=== PATIENT | female | born 1955 | race African-American/Black ===

== ENCOUNTER → 2020-06-19 13:13 | Outpatient (CLI) | payer BC, SELFPAY ==
--- NOTE | ~2020-06-19 | US_ITS ---
EXAMINATION: US soft tissue UE LT DATE: 06/19/2020 13:38 INDICATION: Chronic painful palpable abnormality at the posterior left wrist. TECHNIQUE: Multiple grayscale and Doppler ultrasound images of the region of concern at the left wris t were obtained. COMPARISON: None FINDINGS: Lesion of concern corresponds to a 1.3 x 1.1 x 1.0 cm anechoic likely ganglion cyst with partial thin linear internal septation which appears to arise from an indeterminant joint space at the central as pect of the dorsum of the carpus. No internal flow or surrounding hyperemia on color Doppler. IMPRESSION: 1. 1.3 x 1.1 x 1.0 cm likely ganglion cyst at the dorsum of the carpus. Reviewed, dictated and finalized at location A.
== END ==
PROVIDERS: PCP Family Medicine; Visit Provider Physician Assistant
DX: M67.432 Ganglion, left wrist (principal)
CPT/HCPCS: 76882

== ENCOUNTER → 2021-01-19 13:41 | Outpatient (CLI) | payer BC, SELFPAY ==
--- NOTE | ~2021-01-19 | MM_ITS ---
EXAMINATION: MM screening aria BI w kamaljit HISTORY: Screening mammogram TECHNIQUE: Craniocaudal and mediolateral oblique 3-D tomosynthesis images were obtained and synthetic 2-D images were generated. CAD analysis was submitted and interpreted. COMPARISON: 03/17/2019 diagnostic left digital mammogram and limited left breast ultrasound 02/05/2019 bilateral digital screening mammogram 1. 531 limited right breast ultrasound 09/14/2017 bilateral diagnostic digital mammogram and complete bilateral breast ultrasound 08/09/2017 bilateral digital screening mammogram BREAST PARENCHYMAL COMPOSITION: There are scattered areas of fibroglandular density. FINDINGS: Left breast: There is an approximately 6 x 10 mm opacity in the posterior outer left breast on craniocaudal view. Interval new or enlarged approximately 5 x 10 mm circumscribed opacity at mid depth in the upper oute r quadrant of the left breast.. Right breast: No significant new or enlarging opacities or interval mass or architectural distortion or malignant calcification, skin thickening or retraction of right breast. IMPRESSION: 1. Asymmetric opacities, upper outer left breast 2. Diagnostic left mammogram and left breast ultrasound examination are recommended. BI-RADS Category 0: Incomplete: Needs additional imaging evaluation. Reviewed, dictated and finalized at location A. IMPRESSION: 1. Asymmetric opacities, upper outer left breast 2. Diagnostic left mammogram and left breast ultrasound examination are recomme nded. BI-RADS Category 0: Incomplete: Needs additional imaging evaluation.
== END ==
PROVIDERS: PCP Family Medicine; Visit Provider Nurse Practitioner
DX: Z12.31 Encounter for screening mammogram for malignant neoplasm of breast (principal); R92.8 Other abnormal and inconclusive findings on diagnostic imaging of breast
CPT/HCPCS: 77063; 77067

== ENCOUNTER 2021-01-30 14:25 | Outpatient (CLI) | payer BC, SELFPAY ==
--- NOTE | ~2021-01-30 | MMUS_ITS ---
EXAMINATION: MM diagnostic mammo unilat LT, US breast LT limited HISTORY: Follow-up left breast mass TECHNIQUE: Additional 3-D tomosynthesis images of the left breast were performed and synthetic 2-D im ages were generated. CAD analysis was submitted and interpreted. High resolution Limited left breast ultrasound was performed. COMPARISON: 01/19/2021 BREAST PARENCHYMAL COMPOSITION: Breast composed of scattered areas of fibroglandular density. FINDINGS: MAMMOGRAPHIC FINDINGS: There are multiple masses in the upper outer quadrant of the left breast, largest measuring approxima tely 1 cm. There are benign-appearing left breast calcifications. ULTRASOUND: Left breast ultrasound: There are multiple cysts of the left breast largest at 2:00, 5 cm from the ni pple measuring 11 mm. This corresponds to the dominant mass seen on mammogram. At 2:00, 4 cm from the nipple, there is a slightly irregular shaped hypoechoic mass measuring 4 mm maximum dimension with a ntiparallel configuration. No significant posterior features. No internal vascularity. IMPRESSION: 1. Slightly irregular shaped 4 mm hypoechoic left breast mass with antiparallel configuration. 2. Ultrasound-guided left breast biopsy recommended. BI-RADS category 4, suspicious findings. Reviewed, dictated and finalized at location A. IMPRESSION: 1. Slightly irregular shaped 4 mm hypoechoic left breast mass with antiparallel configuration. 2. Ultrasound-guided left breast biopsy recommended. BI-RADS category 4, suspicious findings.
== END 2021-01-30 14:26 ==
LOC: MICIMG 14:26
PROVIDERS: PCP Family Medicine; Visit Provider Nurse Practitioner
DX: N60.02 Solitary cyst of left breast (principal); N63.21 Unspecified lump in the left breast, upper outer quadrant
CPT/HCPCS: 76642; 77065

== ENCOUNTER 2021-02-16 10:36 | Outpatient (CLI) | payer BC, SELFPAY ==
--- NOTE | ~2021-02-16 | US_ITS ---
US breast cyst asp LT DATE: 02/16/2021 11:18 INDICATION: Slightly irregular hypoechoic 4 mm sonographic mass reported 2:00 4 cm from the nipple on 01/30/2021 Limited left breast ultrasound examination TECHNIQUE: The purpose of the procedure, technique and potential complications were discussed with th e patient. The patient indicated understanding and gave consent. Timeout procedure confirmed proper patient, procedure and left breast. The skin of the left breast was prepared with sterile Betadine solution. 1% lidocaine local anestheti c was administered to the skin; 1% lidocaine with epinephrine was administered to the deep subcutaneo us tissues. Using ultrasound guidance, an 18-gauge spinal needle was introduced through the reported 4 mm mass at 2:00 4 cm from the nipple. The lesion disappeared upon penetration by the needle and was no longer sonographically detectable, consistent with simple cyst. COMPARISON: 01/30/2021 Limited left breast ultrasound IMPRESSION: BI-RADS Category 2: Benign finding; benign cyst at 2:00 4 cm from nipple, resolved by son ographically guided aspiration Recommendation: Routine mammographic screening Reviewed, dictated and finalized at Location A. Reviewed, dictated and finalized at location A. IMPRESSION: BI-RADS Category 2: Benign finding; benign cyst at 2:00 4 cm from n ipple, resolved by sonographically guided aspiration Recommendation: Routine mammographic screening
== END 2021-02-16 10:37 | disposition home or self-care (01) ==
LOC: ANHIMG 10:37
PROVIDERS: PCP Family Medicine; Visit Provider Surgery
DX: R92.8 Other abnormal and inconclusive findings on diagnostic imaging of breast (principal)
CPT/HCPCS: 19000

== ENCOUNTER → 2021-05-14 11:02 | Outpatient (CLI) | payer BC, SELFPAY ==
--- NOTE | ~2021-05-14 | XR_ITS ---
EXAMINATION: XR chest 2V 05/14/2021 11:21 INDICATION: Cough, shortness of breath and chest pain PROCEDURE: 2 view chest COMPARISON: 03/21/2019 FINDINGS: The lungs are clear. The cardiomediastinal silhouette is within normal limits. There are no pleural effusions. There is no pneumothorax suspected. IMPRESSION: 1: NO ACUTE CARDIOPULMONARY DISEASE. Reviewed, dictated and finalized at location A.
== END ==
PROVIDERS: PCP Family Medicine; Visit Provider Physician Assistant
DX: R05 Cough (principal); R06.02 Shortness of breath; R07.89 Other chest pain
CPT/HCPCS: 71046

== ENCOUNTER 2021-05-14 14:56 | Emergency (ER) | payer BC, SELFPAY ==
--- NOTE | ~2021-05-14 | XR_ITS ---
XR chest 2V 05/14/2021 15:16 Indication: Midsternal chest pain and shortness of breath Procedure: 2 view chest Comparison: Comparison to multiple prior studies sequentially, with oldest reviewed study dated 05/10. Findings: Bibasilar airspace disease. Heart size normal. No edema, pleural effusion or pneumothorax. Impression: 1: Bibasilar infiltrates may represent atelectasis or developing pneumonia. Reviewed, dictated and finalized at location A. Impression: 1: Bibasilar infiltrates may represent atelectasis or developing pneumonia.
--- NOTE | ~2021-05-14 | CT_ITS ---
EXAMINATION: CTA chest PE protocol DATE: 05/14/2021 19:56 INDICATION: Chest pain, shortness of breath, dyspnea TECHNIQUE: Computed tomography angiography (CTA) of the chest was performed with 100 mL Omnipaque-350 intravenous contrast timed to evaluate the pulmonary arteries. Coronal maximum intensity projection 3D-reconstructions were created by the technologist. Automated exposure control and iterative reconst ruction technique were employed. Exam dose: 441.75 mGy-cm total exam DLP. COMPARISON: 05/14/2021 2 view chest 07/23/[address] pulmonary scan FINDINGS: There is diagnostic contrast enhancement of the pulmonary arteries and no evidence of pulmo nary embolism. Heart size is within normal range. No thoracic aortic aneurysm or dissection. No hilar or mediastinal mass lesion or lymphadenopathy. No pericardial or pleural effusion. There is mild infiltrate or atelectasis in the lower lobes, left greater than right. A small sclerotic lesion of the anterolateral left sixth rib is probably a bone island considering th e absence of any other sclerotic lesions. IMPRESSION: No evidence of pulmonary embolism Mild infiltrate or atelectasis in the lower lobes, left greater than right Reviewed, dictated and finalized at Location A. Reviewed, dictated and finalized at location A.
--- NOTE | 2021-05-14 14:57 | ECG_ITS ---
Measurements Intervals [place] Rate: 82 P: 39 [place]: 125 QRS: -8 QRSD: 91 T: 6 QT: 363 QTc: 425 Interpretive Statements SINUS RHYTHM VOLTAGE CRITERIA FOR LVH BORDERLINE T WAVE ABNORMALITY- INFERIOR LEADS BASELINE ARTIFACT- I, III, AVR, AVL, AVF BORDERLINE ECG Electronically Signed On 05-14-2021 15:57:30 CDT by Joby Spencer D.O.
--- NOTE | 2021-05-14 15:34 | PC.NURSE ---
1513 PT N//A WHEN CALLED FOR TRIAGE.
[2021-05-14 15:35] VITALS: BP 137/69; PULSE 81; RESP 22; TEMP 36.4; O2SAT 98
[2021-05-14 16:07] LABS: Basophils Percent Auto 0.4 % (0.2-1.2); Eosinophils Absolute Auto 0.1 K/mm3 (0-0.3); Eosinophils Percent Auto 1.1 % (0-4.4); Hemoglobin 12.8 g/dL (12.0-15.0); Immature Granulocyte Absolute 0.02 K/mm3 (0.00-0.031); Immature Granulocyte Percent A 0.3 % (0-0.5); Lymphocytes Absolute Auto 2.23 K/mm3 (0.9-3.2); Lymphocytes Percent Auto 31.2 % (18.3-44.2); Mean Corpuscular HGB Conc 32.8 g/dl (32-36); Mean Corpuscular Hemoglobin 32.1 pg (26-34); Mean Corpuscular Volume 97.7 fl (80-100); Mean Platelet Volume 9.7 fl (7.4-10.4); Monocytes Absolute Auto 0.5 K/mm3 (0.1-0.6); Monocytes Percent Auto 6.6 % (2.6-8.5); Neutrophils Absolute Auto 4.3 K/mm3 (1.3-6.7); Neutrophils Percent Auto 60.4 % (45.5-73.1); Platelet Count Result 250 k/mm3 (150-375); Red Blood Count 3.99 M/mm3 (4.2-5.4); Red Cell Distribution Width 12.7 % (11.5-14.5); White Blood Count 7.2 K/mm3 (4.5-10.0)
[2021-05-14 16:21] LABS: Anion Gap 8 mmol/L (8-16); Blood Urea Nitrogen 9 mg/dL (7-17); Calcium 9.3 mg/dL (8.4-10.2); Carbon Dioxide 27 mmol/L (22-30); Chloride 106 mmol/L (98-107); Estimated CRCL calculation 74 ml/min; Estimated Glomerular Filt Rate > 60; Glucose 101 mg/dL (65-110); Potassium 3.7 mmol/L (3.4-5.0); Sodium 141 mmol/L (137-145)
[2021-05-14 16:22] LABS: Prothrombin Time 13.4 Seconds (11.1-14.7)
[2021-05-14 16:23] LABS: Partial Thromboplastin Time 28.5 SECONDS (22.3-36.8)
[2021-05-14 16:33] LABS: Troponin I < 0.012 ng/mL (0.000-0.034)
--- NOTE | 2021-05-14 18:35 | ED.CHESTPAIN ---
HPI - Chest Pain General Chief Complaint: Chest Pain Stated Complaint: chest pain Time Seen by Provider: 05/14/21 18:30 Source: RN notes reviewed History of Present Illness HPI narrative: Patient presents emerged department from home for chest pain. Patient states pain has been present for the past 10 days pain is located midsternal chest into the right chest is described as sharp and stabbing and has been constant for the past 10 days. Patient states the pain is worse with deep inspiration talking and rotation of the torso she states has been associated with mild feeling of shortness of breath. She states she is currently on amoxicillin for sinus infection with rhinorrhea and sinus congestion she denies any fevers or chills abdominal pain nausea vomiting or any other symptoms patient states she has not had her Covid vaccinations Related Data Home Medications Medication Instructions Recorded Confirmed alprazolam 1 mg tablet 1 mg PO DAILY 09/04/20 02/12/21 eszopiclone 3 mg tablet 3 mg PO ONCE 09/04/20 02/12/21 Allergies Allergy/AdvReac Type Severity Reaction Status Date / Time azithromycin Allergy Mild nausea Verified 05/14/21 19:20 [From Zithromax Z-Justen] codeine Allergy Mild Unknown Verified 05/14/21 19:20 Review of Systems Review of Systems: Gen.: Denies fevers or chills Eyes: Denies eye pain or visual change ENT: Reports congestion Respiratory: Reports shortness of breath denies cough CV: Reports chest pain GI: Denies abdominal pain nausea, emesis or diarrhea Musculoskeletal: Denies back pain or muscle pain Neuro: Denies numbness, tingling, weakness or focal weakness Skin: Denies rash Except as documented, all other systems reviewed and negative [facility] Past Medical History Medical History Anxiety Breast cyst Depression Insomnia MDD (major depressive disorder), recurrent episode, moderate Mitral valve prolapse Stomach ulcer Vitamin D deficiency Surgical History Surgical History History of breast biopsy History of removal of ovarian cyst Family History Family History Sibling Hypertension Family history of mental disorder Family history of arthritis Family history of heart disease in male family member before age 55 Other Diabetes mellitus Family history of cardiovascular disease Family history of kidney disease Family history of malignant neoplasm Social History Social History Social History: Smoking packs per day: 1 Smoking cigarettes per day: 20.0 Years smoked: 20 Smoking pack-years: 20.00 Smoking status: Former smoker Tobacco type: cigarettes Second hand tobacco smoke exposure: No Smoking end date: 08/29/92 Alcohol intake: never Substance use: never Substance use type: does not use Gender identity (if verbalized by the patient): Female Sexual Orientation (if Verbalized by the Patient): Straight or Heterosexual Exam Narrative: APPEARANCE: No acute distress, nontoxic, resting in bed EYES: EOMI HEENT: Normocephalic, atraumatic, OMM RESPIRATORY: No respiratory distress Clear to auscultation bilaterally with no rhonchi wheezing or rales. CARDIOVASCULAR: Regular rate and rhythm without murmurs rubs or gallops. Chest: Turn palpation of the right anterior chest wall pain increased with deep inspiration and rotation of the torso ABDOMINAL: Soft, nontender, nondistended, no rebound or guarding MUSCULOSKELETAl: Moves all extremities. No clubbing, cyanosis or edema. NEURO: Awake and alert. Following commands, speech normal, no focal deficits SKIN:: Warm, dry. No rashes lesions or abrasions PSYCHIATRIC: Normal affect/mood, Course Course Emergency Course: Patient states chest pain is improved with medication Called and discussed
[2021-05-14 19:12] LABS: Troponin I < 0.012 ng/mL (0.000-0.034)
[2021-05-14 19:17] VITALS: BP 147/88; PULSE 75; RESP 17; O2SAT 100
[2021-05-14] MEDS: KETOROLAC 30 MG/ML VIAL (*BKC) IV PUSH (19:27)
[2021-05-14] MEDS: ONDANSETRON INJ 4 MG/2 ML VIAL IV PUSH (20:02)
[2021-05-14 21:16] VITALS: BP 126/81; PULSE 76; RESP 18; O2SAT 100
[2021-05-15 19:38] LABS: SARS-CoV-2 RNA PCR Negative
== END 2021-05-14 21:09 | disposition home or self-care (01) ==
PROVIDERS: Emergency Medicine; Emergency Provider Emergency Medicine; PCP Family Medicine
DX: R07.89 Other chest pain (principal); Z20.822 Contact with and (suspected) exposure to COVID-19; F41.9 Anxiety disorder, unspecified; F32.9 Major depressive disorder, single episode, unspecified; I34.1 Nonrheumatic mitral (valve) prolapse; E55.9 Vitamin D deficiency, unspecified; Z87.891 Personal history of nicotine dependence; R94.31 Abnormal electrocardiogram [ECG] [EKG]
CPT/HCPCS: 36415; 71046; 71275; 80048; 84484; 85025; 85610; 85730; 93005; 96374; 96375; 99284; C9803; J1885; J2405; Q9967; U0003; U0005

== ENCOUNTER 2022-03-17 11:42 | Emergency (ER) | payer BC, SELFPAY ==
[2022-03-17] VITALS (11 sets, daily range): BP systolic 123–135; BP diastolic 72–96; PULSE 69–96; RESP 12–21; TEMP 36.8; O2SAT 90–100
--- NOTE | ~2022-03-17 | XR_ITS ---
EXAMINATION: XR chest 2V DATE: 03/17/2022 12:38 INDICATION: 2 weeks of worsening centralized chest pain TECHNIQUE: PA and lateral views of the chest were obtained. COMPARISON: Chest radiograph and CT dated 05/14/21 FINDINGS: The lungs are clear with no focal airspace opacities, pulmonary edema, pleural effusion or pneumothor ax. The cardiomediastinal silhouette is normal. Visualized bones and soft tissues are unremarkable. IMPRESSION: 1. No acute cardiopulmonary disease. Reviewed, dictated and finalized at location A.
--- NOTE | ~2022-03-17 | CT_ITS ---
EXAMINATION: CTA chest abdomen pelvis DATE: 03/17/2022 13:08 INDICATION: Shortness of breath, chest pain and epigastric pain radiating into the back. TECHNIQUE: Computed tomography (CT) pulmonary angiogram of the chest was performed with 100 mL Omnipa que-350 intravenous contrast. Additional 3D reconstructions utilizing coronal maximum intensity proje ction (MIP) were performed. CT of the abdomen and pelvis was performed with intravenous contrast util izing the same contrast bolus following a short delay. Automated exposure control and iterative recon struction technique were employed. The dose-length product was 1005.24 mGy-cm. COMPARISON: Chest CT dated 05/14/2021 and 07/23/[address] abdomen and pelvis dated 10/28/2015 FINDINGS: Chest: Excellent contrast opacification of the pulmonary arteries. There is mild streak artifact from dense contrast in the superior vena cava and right atrium. No significant motion artifact yielding diagnost ic quality study which demonstrates no pulmonary embolism. Very small bilateral posterior layering pl eural effusions. Mild dependent atelectasis in the bilateral lower lobes. Heart size is normal. No pe ricardial effusion. Thoracic aorta is normal in caliber with no dissection. No pathologically enlarge d abdominal or pelvic lymphadenopathy. Chronic small sclerotic bone island at the anterolateral left sixth rib. Abdomen/pelvis: There are couple subcentimeter low-attenuation hepatic cysts versus hemangiomas which are unchanged s kalani 10/28/15. Small phrygian cap versus focal adenomyomatosis at the tip of the gallbladder fundus. Th e common bile duct is dilated to 9 mm which is without interval change since the 07/23/2018 without e vident obstructing lesion. No intrahepatic biliary ductal dilation. Spleen, pancreas, bilateral adren al glands and kidneys are normal. Bladder, anteverted uterus and bilateral adnexa are normal. There a re few diverticula along the sigmoid colon without adjacent inflammatory change to suggest diverticul ar colitis. No free intraperitoneal gas or fluid. No pathologically enlarged abdominal or pelvic lymp hadenopathy. Mild thoracolumbar levocurvature. IMPRESSION: 1. No pulmonary embolism. 2. Very small bilateral pleural effusions. 3. Chronic mild dilation the common bile duct up to 9 mm without evident obstructing lesion. Correlat e with liver function tests. Reviewed, dictated and finalized at location A. IMPRESSION: 1. No pulmonary embolism. 2. Very small bilateral pleural effusions. 3. Chronic mild dilation the common bile duct up to 9 mm without evident obstru cting lesion. Correlate with liver function tests.
--- NOTE | 2022-03-17 11:43 | ECG_ITS ---
Measurements Intervals [place] Rate: 92 P: 52 [place]: 127 QRS: 6 QRSD: 89 T: 39 QT: 350 QTc: 433 Interpretive Statements SINUS RHYTHM BORDERLINE R WAVE PROGRESSION, ANTERIOR LEADS BORDERLINE ST-T WAVE ABNORMALITY- ANTEROLAT/INF LEADS BORDERLINE ECG Electronically Signed On 03-17-2022 22:29:05 CDT by Joby Spencer D.O.
[2022-03-17] MEDS: ASPIRIN 81 MG CHEWABLE TABLET 324 MG PO (12:07)
[2022-03-17 12:13] LABS: Basophils Percent Auto 0.3 % (0.2-1.2); Eosinophils Absolute Auto 0.1 K/mm3 (0-0.3); Eosinophils Percent Auto 1.9 % (0-4.4); Hematocrit 41.1 % (37.0-47.0); Hemoglobin 13.4 g/dL (12.0-15.0); Immature Granulocyte Absolute 0.02 K/mm3 (0.00-0.031); Immature Granulocyte Percent A 0.3 % (0-0.5); Lymphocytes Absolute Auto 2.24 K/mm3 (0.9-3.2); Lymphocytes Percent Auto 35.2 % (18.3-44.2); Mean Corpuscular HGB Conc 32.6 g/dl (32-36); Mean Corpuscular Hemoglobin 31.4 pg (26-34); Mean Corpuscular Volume 96.3 fl (80-100); Mean Platelet Volume 9.9 fl (7.4-10.4); Monocytes Absolute Auto 0.5 K/mm3 (0.1-0.6); Monocytes Percent Auto 8.3 % (2.6-8.5); Neutrophils Absolute Auto 3.4 K/mm3 (1.3-6.7); Platelet Count Result 273 k/mm3 (150-375); Red Blood Count 4.27 M/mm3 (4.2-5.4); Red Cell Distribution Width 12.9 % (11.5-14.5); White Blood Count 6.4 K/mm3 (4.5-10.0)
[2022-03-17 12:22] LABS: Alanine Aminotransferase 18 U/L (6-35); Albumin Level 4.8 g/dL (3.5-5.1); Alkaline Phosphatase 104 U/L (38-126); Anion Gap 8 mmol/L (8-16); Aspartate Amino Transferase 23 U/L (14-36); Bilirubin,Total 0.7 mg/dL (0.2-1.3); Blood Urea Nitrogen 12 mg/dL (7-17); Calcium 9.3 mg/dL (8.4-10.2); Carbon Dioxide 26 mmol/L (22-30); Chloride 107 mmol/L (98-107); Estimated CRCL calculation 82 ml/min; Estimated Glomerular Filt Rate > 60; Glucose 110 mg/dL (65-110); Lipase 115 U/L (23-300); Sodium 141 mmol/L (137-145)
--- NOTE | 2022-03-17 12:25 | ED.GENADULT ---
HPI - General Adult General Chief complaint: Chest Pain Stated complaint: chest pain x 1.5 weeks, nausea, BERRY Time Seen by Provider: 03/17/22 11:58 History of Present Illness HPI narrative: 66-year-old female presenting to the emergency department for evaluation of 1.5 weeks of intermittent substernal chest pain. Patient denies any prior history of HI or CVA. Patient states over the course of the last 1-1/2 weeks she has had a epigastric/substernal chest pain that she states does radiate to her back. Patient denies a sharp pain but states it is a pressure. Patient states the pain initially started when she was going to bed and lying down and that the symptoms have persisted. Patient states that she does not drink alcohol. Patient states that she typically takes Tylenol for pain control but has been taking Aleve daily for the past week and a half. Related Data Home Medications Medication Instructions Recorded Confirmed alprazolam 1 mg tablet (Xanax) 1 mg PO DAILY 09/04/20 10/27/21 eszopiclone 3 mg tablet 3 mg PO ONCE 09/04/20 10/27/21 Allergies Allergy/AdvReac Type Severity Reaction Status Date / Time azithromycin Allergy Mild nausea Verified 03/17/22 12:02 [From Zithromax Z-Justen] codeine Allergy Mild Unknown Verified 03/17/22 12:02 amoxicillin [From Augmentin] AdvReac nausea, Verified 03/17/22 12:02 headache clavulanic acid AdvReac nausea, Verified 03/17/22 12:02 [From Augmentin] headache Review of Systems Review of Systems: CONSTITUTIONAL: Denies fever, chills, or sweats. EYES: Denies visual changes, redness, or discharge. ENT: Denies rhinorrhea, congestion, sore throat, or otalgia. CARDIOVASCULAR: See HPI RESPIRATORY: Denies cough or dyspnea. GASTROINTESTINAL: Denies abdominal pain, nausea, vomiting, or diarrhea. GENITOURINARY: Denies dysuria or hematuria. SKIN: Denies rash or itching. MUSCULOSKELETAL: Denies back pain, joint pain, or myalgia. NEUROLOGIC: Denies headache, numbness, or weakness. [facility] Past Medical History Medical History Anxiety Breast cyst Depression Insomnia MDD (major depressive disorder), recurrent episode, moderate Mitral valve prolapse Stomach ulcer Vitamin D deficiency Surgical History Surgical History History of breast biopsy History of removal of ovarian cyst Family History Family History Sibling Hypertension Family history of mental disorder Family history of arthritis Family history of heart disease in male family member before age 55 Other Diabetes mellitus Family history of cardiovascular disease Family history of kidney disease Family history of malignant neoplasm Social History Social History (Updated 10/27/21 @ 13:06 by Meghan Parker) Social History: Smoking packs per day: 1 Smoking cigarettes per day: 20.0 Years smoked: 20 Smoking pack-years: 20.00 Smoking status: Former smoker Tobacco type: cigarettes Second hand tobacco smoke exposure: No Smoking end date: 08/29/92 Alcohol intake: never Substance use: never Substance use type: does not use Gender identity (if verbalized by the patient): Female Sexual Orientation (if Verbalized by the Patient): Straight or Heterosexual Exam Narrative: APPEARANCE: Well appearing, no pain, no distress, well-nourished. HEAD: normocephalic, atraumatic. EYES: PERRLA/EOMI, conjunctivae clear. NOSE: Normal no drainage THROAT: Pharynx clear, no exudate. NECK: Supple. No adenopathy, no masses. RESPIRATORY: Airway patent, respirations nonlabored. Clear to auscultation bilaterally, no rales, rhonchi, wheezing. CARDIOVASCULAR: Regular rate and rhythm without murmurs rubs or gallops. ABDOMINAL: Soft, nondistended, normal bowel sounds, mild epigastric tenderness to palpation MUSCULOSKELETAL: Moves all extremities. Stre
[2022-03-17 12:29] LABS: INR 1.1; Partial Thromboplastin Time 27.1 SECONDS (22.3-36.8); Prothrombin Time 13.6 Seconds (11.1-14.7)
[2022-03-17 12:35] LABS: Troponin I < 0.012 ng/mL (0.000-0.034)
[2022-03-17] MEDS: PANTOPRAZOLE SODIUM IV 40 MG VIAL IV PUSH (12:36)
[2022-03-17] MEDS: BELLADONNA ALK/PHENOB ELIX 10 ML, MAG HYDROX/ALUMINUM HYD/SIMETH 30 ML, LIDOCAINE HCL 2... PO (12:36)
[2022-03-17 12:40] LABS: D Dimer 1.25 ug/mL (<0.48)
[2022-03-17 15:06] LABS: Troponin I < 0.012 ng/mL (0.000-0.034)
== END 2022-03-17 15:57 | disposition home or self-care (01) ==
PROVIDERS: Emergency Medicine; Emergency Provider Emergency Medicine; PCP Family Medicine
DX: R07.9 Chest pain, unspecified (principal); F41.9 Anxiety disorder, unspecified; F32.9 Major depressive disorder, single episode, unspecified
CPT/HCPCS: 36415; 71046; 71275; 74174; 80053; 83690; 84484; 85025; 85380; 85610; 85730; 93005; 96365; 96375; 99284; A9270; C9113; J0131; Q9967

== ENCOUNTER 2022-05-18 12:49 | Outpatient (CLI) | payer MEDICARE, SELFPAY | END 2022-05-18 12:50 | disposition home or self-care (01) | LOC: ANHAUDIO 12:50 | PROVIDERS: PCP Family Medicine; Visit Provider Otolaryngology | DX: H91.93 Unspecified hearing loss, bilateral (principal); H93.13 Tinnitus, bilateral | CPT/HCPCS: 92557; 92567 ==

== ENCOUNTER → 2023-04-29 14:23 | Outpatient (CLI) | payer MEDICARE, SELFPAY ==
--- NOTE | ~2023-04-29 | MMUS_ITS ---
EXAMINATION: MM diagnostic aria BI w kamaljit, US breast BI limited HISTORY: Bilateral breast pain TECHNIQUE: Craniocaudal, mediolateral, and mediolateral oblique 3-D tomosynthesis images of the breas ts were performed and synthetic 2-D images were generated. CAD analysis was submitted and interpreted . High resolution limited bilateral breast ultrasound was performed. COMPARISON: 01/30/2021, 01/19/2021 BREAST PARENCHYMAL COMPOSITION: There are scattered areas of fibroglandular density. FINDINGS: MAMMOGRAPHIC FINDINGS: No suspicious mass, calcification, or architectural distortion are identified in either breast to sug gest malignancy. There has been no suspicious interval change. No mammographic correlate is identifie d for the reported pain in either breast. ULTRASOUND: No suspicious cystic or solid mass is identified to correspond with the patient's pain in either mai st. A 4 mm cyst is incidentally noted at the 6:00 location, 4 cm from the nipple in the left breast. IMPRESSION: 1. No suspicious mammographic or sonographic correlate is identified for the reported palpable abnorm ality of concern. Further evaluation at this time should be based on clinical assessment. Continued f ollow-up physical examination is recommended. 2. Recommend routine screening mammography in one year. BI-RADS Category 2: Benign finding(s). Reviewed, dictated and finalized at location A. IMPRESSION: 1. No suspicious mammographic or sonographic correlate is identified for the re ported palpable abnormality of concern. Further evaluation at this time should be based on clinical assessment. Continued follow-up physical examination is re commended. 2. Recommend routine screening mammography in one year. BI-RADS Category 2: Benign finding(s).
== END ==
PROVIDERS: PCP Family Medicine; Visit Provider Obstetrics & Gynecology Gynecology
DX: N64.4 Mastodynia (principal)
CPT/HCPCS: 76642; 77062; 77066; G0279

== ENCOUNTER 2024-06-19 09:08 | Outpatient (CLI) | payer MEDICARE, SELFPAY ==
--- NOTE | ~2024-06-19 | US_ITS ---
EXAMINATION: US aorta DATE: 06/19/2024 15:01 CDT INDICATION: Screening for abdominal aortic aneurysm. History of smoking and high cholesterol. TECHNIQUE: Grayscale, color Doppler, and pulsed Doppler images of the aorta and common iliac arteries were obtained. COMPARISON: None. FINDINGS: The proximal aorta measures 2.4 cm greatest sagittal dimension. The mid aorta measures 1.9 cm greates t sagittal dimension. The distal aorta measures 1.7 cm greatest sagittal dimension. The right common internal iliac artery measures 11 mm. The left common iliac artery measures 13 mm. IMPRESSION: 1. Normal caliber aorta without evidence for aneurysm. Reviewed, dictated and finalized at location B.
--- NOTE | ~2024-06-19 | XR_ITS ---
XR chest 2V Ordering provider: Mignon Marie, History: 69 years Female with . Cough . Comparison: March 17, 2022. FINDINGS: MEDIASTINUM: The cardiac silhouette is not enlarged. LUNGS: No infiltrates, effusions or pneumothorax. OTHER: No free air under the diaphragm. IMPRESSION: No acute cardiopulmonary pathology. Reviewed, dictated and finalized at location A.
--- NOTE | ~2024-06-19 | XR_ITS ---
3 VIEWS LUMBAR SPINE Ordering provider: Mignon Marie, History: . Lumbar radiculopathy . Comparison: April 09, 2017 FINDINGS: VERTEBRAL BODIES: No visible fracture or subluxation. DISK SPACES: Normal. SOFT TISSUES: Normal. IMPRESSION: No acute osseous abnormality lumbar spine. Reviewed, dictated and finalized at location A.
== END 2024-06-19 09:09 | disposition home or self-care (01) ==
LOC: MICIMG 09:10
PROVIDERS: PCP Internal Medicine; Visit Provider Internal Medicine
DX: M54.16 Radiculopathy, lumbar region (principal); R10.30 Lower abdominal pain, unspecified; R05.9 Cough, unspecified; Z78.0 Asymptomatic menopausal state; Z12.31 Encounter for screening mammogram for malignant neoplasm of breast
CPT/HCPCS: 71046; 72100; 76775

== ENCOUNTER 2024-07-24 13:21 | Outpatient (CLI) | payer MEDICARE, SELFPAY ==
--- NOTE | ~2024-07-24 | MM_ITS ---
EXAMINATION: MM screening [facility] BI w kamaljit HISTORY: Screening TECHNIQUE: Craniocaudal and mediolateral oblique 3-D tomosynthesis images were obtained and synthetic 2-D images were generated. CAD analysis was submitted and interpreted. COMPARISON: Comparison to multiple prior studies sequentially, with oldest reviewed study dated 02/05. BREAST PARENCHYMAL COMPOSITION: Not dense: There are scattered areas of fibroglandular density. FINDINGS: There is no evidence of suspicious mass, calcification, or architectural distortion to sugg est malignancy in either breast. There has been no suspicious interval change. IMPRESSION: 1. No mammographic evidence of malignancy. 2. Recommend routine screening mammography in one year. BI-RADS Category 1: Negative Reviewed, dictated and finalized at location B. [facility] [employer]
== END 2024-07-24 13:22 | disposition home or self-care (01) ==
PROVIDERS: PCP Internal Medicine; Visit Provider Nurse Practitioner
DX: Z12.31 Encounter for screening mammogram for malignant neoplasm of breast (principal)
CPT/HCPCS: 77063; 77067

== ENCOUNTER 2024-12-10 12:19 | Outpatient (CLI) | payer MEDICARE, SELFPAY ==
--- NOTE | ~2024-12-10 | DEXA_ITS ---
Bone Density Report Name: GIUSEPPE CAMPOS Age: 69 Sex: Female Ethnicity: White Date of : 1955 Indication: postmenopausal; screening for osteoporosis; prior fracture; Referring Provider: EDITA, NATTY Study: Bone densitometry was performed. Exam Date: December 10, 2024 Accession number: [id number] Bone Density: Region BMD T-score Z-score Classification AP Spine(L1-L4) 1.362 2.9 4.8 Normal Femoral Neck (Left) 0.886 0.3 2.0 Normal Total Hip (Left) 1.030 0.7 2.1 Normal Femoral Neck (Right) 0.916 0.6 2.3 Normal Total Hip (Right) 1.114 1.4 2.8 Normal Total Hip Mean 1.072 1.1 2.5 Normal World Health Organization criteria for BMD impression classify patients as: Normal (T-score at or above -1.0), Osteopenia (T-score between -1.0 and -2.5), or Osteoporosis (T-score at or below -2.5). 10-year Fracture Risk: FRAX not reported because: All T-scores for Spine Total, Hip Total, Femoral Neck at or above -1.0 Clinical Information Provided by Patient: Has had a low trauma fracture Has used the following medications: Vitamin D Patient maximum height was 67.0 Menopause Age: 47 No regular weight bearing exercise Does not regularly consume dairy products Drinks caffeinated beverages Onset of menses at age 15 Number of children 2 Impression: The patient has normal bone mass. The patient has risk factors, including: previous fracture. Discussion: BONE DENSITY IS ABOVE THE MINIMUM DESIRABLE LEVEL AT ALL SKELETAL SITES TESTED. This patient?s bone mineral density is above the minimum desirable level (T-score -1.0 or better) at all sites measured. The patient should follow a healthful lifestyle (good nutrition with adequate calcium and vitamin D, and appropriate weight-bearing exercise). Follow-Up: Consider repeating this study in 5 years or sooner if there is some new clinical indication. Reported by: ELROY on 12/10/2024 12:52:00 PM. Reviewed, dictated and finalized at location [facility]
--- OUTSIDE RECORDS SUMMARY | 2024-12-10 13:33 | XMS_ITS ---
Author Organization [facility] Address [address] [place] [address] Care Team Providers Care Recenterer Name Role Phone Mignon Marie MD Primary Care Provider Susie Pederson Unavailable [phone] Francois Franks Unavailable Unavailable Allergies No Known Allergies Results Component Value Reference Range Notes -Tryptase ([id number]) Reviewed date:08/16/2024 11:27:15 AM Interpretation:Normal Performing Lab:[facility] [address] [id number], Phone - [phone], Director - Page Notes/Report: Tryptase 6.0 2.2-13.2 ug/L -Respiratory Allergens w/Tot al IgE Area 8 Reviewed date:08/14/2024 09:25:49 PM Interpretation:Normal Performing Lab:[facility] [address] [id number], Phone - [phone], Director - Page Notes/Report: Class Description Levels of Specific IgE Class Description of Class ----- < 0.10 0 Negative 0.10 - 0.31 0/I Equivocal/Low 0.32 - 0.55 I Low 0.56 - 1.40 II Moderate 1.41 - 3.90 III High 3.91 - 19.00 IV Very High 19.01 - 100.00 V Very High >100.00 Very High Immunoglobulin E, Total 173 6-495 IU/mL R041-FrL D pteronyssinus <0.10 Class 0 kU/L A618-QlY D farinae <0.10 Class 0 kU/L S129-JaA Cat Dander <0.10 Class 0 kU/L R144-QsD Dog Dander <0.10 Class 0 kU/L G286-XuW Mouse Urine <0.10 Class 0 kU/L I276-NuA Bermuda Grass <0.10 Class 0 kU/L F996-FxB Marvin Grass <0.10 Class 0 kU/L Z411-FeV Cockroach, Taiwanese <0.10 Class 0 kU/L R593-EvK Penicillium chrysogen <0.10 Class 0 kU /L Z358-JqC Cladosporium herbarum <0.10 Class 0 kU /L V853-MxN Aspergillus fumigatus <0.10 Class 0 kU /L E854-CpF Alternaria alternata <0.10 Class 0 kU/ L R675-RcI Maple/Lenorah <0.10 Class 0 kU/L P663-ViM Houghton, Mountain <0.10 Class 0 kU/L I426-KsE Vega, White <0.10 Class 0 kU/L W560-RkK Elm, Eritrean <0.10 Class 0 kU/L R761-YdJ [place] <0.10 Class 0 kU/L A909-LjG Maple Chalmers [place] <0.10 Class 0 kU/L O659-JnY [place] <0.10 Class 0 kU/L K925-OhC Mi, White <0.10 Class 0 kU/L R362-EdS Pecan, Gibson <0.10 Class 0 kU/L W851-QuC White Dickerson <0.10 Class 0 kU/L T650-OeE Ragweed, Short <0.10 Class 0 kU/L L524-EuN Thistle, Filipino <0.10 Class 0 kU/L B384-ObY Pigweed, Common <0.10 Class 0 kU/L K243-AcN Rough Marshelder <0.10 Class 0 kU/L REASON FOR VISIT Chronic upper airway symptoms concerning for uncontrolled atopic disease, congestion, sneezing and drainage occurring for many years. Previously seen at a different allergy office with positive testing to cat and DM., Chronic lower airways symptoms concerning for possible asthma, occasional cough when she is talking or laughing. Does admit to post-nasal drip., Sneezing with various fragrances. Medications Medication SIG (Take, Route, Frequency, Duration) Notes Start Date End Date Status Cetirizine HCl 10 MG 1 tablet Orally Once a day Active Nasal Washes N/A as directed intranasally 08/07/20 Active Ipratropium [place] 0.06 % 2 sprays in e ach nostril Nasally Twice a day for 30 days 08/07/2024 Active Benadryl Allergy 25 MG 1 tablet at bedti me as needed Orally Once a day Active Fluticasone Propionate 50 MCG/ACT 1 spray in each nostril Nasally Twice a day Active Xanax 1 MG 1 tablet Orally Twic e a day Active Lunesta 3 MG 1 tablet immediately before bedtime Orally Once a day Active Albuterol Sulfate HFA 108 (90 Base) MCG/ACT Inhalation Active Social History Tobacco Use: Social History Observation Description Date Details (start date - stop date) Former Smoker NA - NA Tobacco Control (Standard) Question Answer Notes Tobacco use: Former smoker Problems Problem Type SNOMED Code ICD Code Onset Dates Problem Status W/U Status Risk Notes Problem Allergic rhinitis caused by pollen (disorder) (84101955) Allergic rhinitis due to pollen (J30.1) Active confirmed Problem Allergic rhinitis (98988166) Other allergic rhinitis (J30.89) Active confirmed Problem Chronic allergic conjunctivitis (17458988) Other chronic allergic conjunctivitis (H10.45) Active confirmed Problem Anxiety disorder (449935440) Anxiety disorder, unspecified (F41.9) Active confirmed Problem Allergy to penicillin (02556871) Allergy status to penicillin (Z88.0) Active confirmed Problem Hypertrophy of nasal turbinates (31952032) Hypertrophy of nasal turbinates (J34.3) Active confirmed Problem Sneezing (72984257) Sneezing (R06.7) Active confirmed Problem Cough (finding) (56386073) Cough, unspecified (R05.9) Active confirmed Problem Elevated blood pressure reading without diagnosis of hypertension (117245229) Elevated blood-pressure reading, without diagnosis of hypertension (R03.0) Active confirmed Vital Signs Blood pressure systolic 134 mm Hg 12/10/20 24 Blood pressure diastolic 84 mm Hg 024 Height 67 in 08/07/2024 Weight 219.6 lbs 08/07/2024 BMI 34.39 kg/m2 08/07/2024 Oximetry 98 % 08/07/2024 Encounters Encounter Location Date Provider Diagnosis [facility] [address] [facility] [address] [place] [address] 08/07/2024 Susie Chapman Allergic rhinitis du e to pollen J30.1 ; Other allergic rhinitis J30.89 ; Other chronic allergic conjunctivitis H10.45 ; Hypertrophy of nasal turbinates J34.3 ; Sneezing R06.7 ; Cough, unspecified R05.9 ; Allergy status to penicillin Z88.0 and Elevated blood-pressure reading, without diagnosis of hypertension R03.0 Assessments Encounter Date Diagnosis (ICD Code) Assessment Notes Treatment Notes Treatment Clinical Notes Section Notes 08/07/2024 Allergic rhinitis due to pollen (ICD-10 - J30.1) Given the history and symptoms, skin testing was performed to common aeroallergens to determine atopic status. Jessa suffers from mild atopic disease based upon our skin testing and clinical history. Accordingly, we have introduced a new, aggressive medication regimen, discussed nasal washes and allergy-specific avoidance measures. We also discussed adjunctive therapies including subcutaneous, specific allergen immunotherapy as relates to the treatment and prevention of atopic disease. - Jessa deferred intradermal testing today, she is agreeable to ImmunoCaps. Order sent to [facility]. - Discuss SCIT in further detail next visit. - Follow-up in 4-6 weeks for laboratory review and further evaluation and management 08/07/2024 Other allergic rhinitis (ICD-10 - J30.89) Follow allergen avoidance, meds and consider SCIT as an adjunctive treatment to current regimen 08/07/2024 Other chronic allergic conjunctivitis (ICD-10 - H10.45) Given ocular signs and symptoms I encouraged allergy avoidance measures and meds as above. If symptoms persist, consider adding additional medications including intraocular antihistamine/mast cell stabilizer, PRN and consider SCIT as an adjunctive measure 08/07/2024 Hypertrophy of nasal turbinates (ICD-10 - J34.3) See plan above 08/07/2024 Sneezing (ICD-10 - R06.7) Jessa reports persistent sneezing with various triggers including strong fragrances. She also recently noted sneezing after eating peanut butter, however denied associated systemic symptoms. She regularly eats peanut butter without issue. - Will order baseline tryptase level for rule out of MCAS, however discussed that symptoms described are likely due to non-allergic rhinitis. Will trial ipratropium bromide as above 08/07/2024 Cough, unspecified (ICD-10 - R05.9) Jessa reports occasional cough that she feels is due to drainage. She denies shortness of breath or wheezing. She denies history of hospitalizations due to lower airway symptoms. Jessa was recently prescribed an albuterol inhaler by her PCP, however has not used it. She also reports compelting a breathing test, however no records to review. She is a prior smoker, quit 30-years ago. Reports being UTD on lung cancer screenings. - Records requested from PCP to review spirometry. - Will trial ipratropium bromide as above for concerns of PND. If cough persists, consider trial of ICS or ICS/LABA. - Continue PABLO as-needed. - Follow-up in 4 weeks for further evaluation and management 08/07/2024 Allergy status to penicillin (ICD-10 - Z88.0) Jessa recalls being told at some point to avoid penicillin, additional details are unclear. Continue avoidance at this time, discuss options for testing next visit 08/07/2024 Elevated blood-pressure reading, without diagnosis of hypertension (ICD-10 - R03.0) BP elevated today without symptoms of urgency or emergency. Continue serial checks and follow-up with PCP 08/07/2024 Other Plan Of Treatment Medication Medication Name Sig Start Date Stop Date Notes Cetirizine HCl 10 MG 1 tablet Orally Once a day Nasal Washes N/A as directed intranasally 08/07/2024 Ipratropium [place] 0.06 % 2 sprays in e ach nostril Nasally Twice a day for 30 days 08/07/2024 Fluticasone Propionate 50 MCG/ACT 1 spray in each nostril Nasally Twice a day Albuterol Sulfate HFA 108 (9 0 Base) MCG/ACT Inhalation Treatment Notes Assessment Notes Allergic rhinitis due to pollen Given the history and symptoms, skin testing was performed to common aeroallergens to determine atopic status. Jessa suffers from mild atopic disease based upon our skin testing and clinical history. Accordingly, we have introduced a new, aggressive medication regimen, discussed nasal washes and allergy-specific avoidance measures. We also discussed adjunctive therapies including subcutaneous, specific allergen immunotherapy as relates to the treatment and prevention of atopic disease. - Jessa deferred intradermal testing today, she is agreeable to ImmunoCaps. Order sent to [facility]. - Discuss SCIT in further detail next visit. - Follow-up in 4-6 weeks for laboratory review and further evaluation and management Other allergic rhinitis Follow allergen avoidance, meds and consider SCIT as an adjunctive treatment to current regimen Other chronic allergic conjunctivitis Gi oh ocular signs and symptoms I encouraged allergy avoidance measures and meds as above. If symptoms persist, consider adding additional medications including intraocular antihistamine/mast cell stabilizer, PRN and consider SCIT as an adjunctive measure Hypertrophy of nasal turbinates See plan above Sneezing Jessa reports persistent sneezing with various triggers including strong fragrances. She also recently noted sneezing after eating peanut butter, however denied associated systemic symptoms. She regularly eats peanut butter without issue. - Will order baseline tryptase level for rule out of MCAS, however discussed that symptoms described are likely due to non-allergic rhinitis. Will trial ipratropium bromide as above Cough, unspecified Jessa reports occasional cough that she feels is due to drainage. She denies shortness of breath or wheezing. She denies history of hospitalizations due to lower airway symptoms. Jessa was recently prescribed an albuterol inhaler by her PCP, however has not used it. She also reports compelting a breathing test, however no records to review. She is a prior smoker, quit 30-years ago. Reports being UTD on lung cancer screenings. - Records requested from PCP to review spirometry. - Will trial ipratropium bromide as above for concerns of PND. If cough persists, consider trial of ICS or ICS/LABA. - Continue PABLO as-needed. - Follow-up in 4 weeks for further evaluation and management Allergy status to penicillin Jessa rec alls being told at some point to avoid penicillin, additional details are unclear. Continue avoidance at this time, discuss options for testing next visit Elevated blood-pressure read ing, without diagnosis of hypertension BP elevated today without symptoms of urgency or emergency. Continue serial checks and follow-up with PCP Next Appt Details Follow Up: 4 Weeks, Reason: Evaluation and Management, Laboratory Review Procedure Notes * Category Sub-Category Detail Notes Skin Testing Number of Skin Tests Performed (including controls): Aeroallergen: Yes Epicutaneous: 72 Total (Epicutaneous): 72 Epicutaneous (New) skin testing was per formed to common aeroallergens; revealing positive reactions to; [place]oughton; Elm; Sweet Gum; [place] (Eritrean); DM f; Phoma Herbarum; positive and negative controls responded appropriately Progress Notes * Cuate CAMPOSaDOB:1955 ( 69 yo F)Acc No.[id number]:08/07/2024 Progress Notes Patient: Jessa FISHER Provider: EARL Woodson :1955 A ge:69 Y S ex:Female Date:08/07/2024 Address:[address] [place] [address] Pcp:Mignon Marie MD Subjective: * Chief Complaints: * C hronic upper airway symptoms concerning for uncontrolled atopic disease, congestion, sneezing and drainage occurring for many years. Previously seen at a different allergy office with positive testing to cat and DM.Chronic lower airways symptoms concerning for possible asthma, occasional cough when she is talking or laughing. Does admit to post-nasal drip.Sneezing with various fragrances. * HPI: * Introduction: I had the pleasure of seeing Fede Campos, a 69-year-old female with past medical historysignificant for anxiety who presents for allergy evaluation and management. Sheis alone for today's visit. Jessa endorses upper airway symptoms concerningfor uncontrolled atopic disease. Descriptors of her symptoms are outlinedbelow. Primarily, she complains of persistentsneezing and post-nasal drip. She takes Zyrtec daily with moderate benefit.Also uses Flonase as-needed. Jessa was previously evaluated by a differentallergist, Dr. Phelan, who told her she was allergic to cat and dust mite. Shehas never undergone specific allergen immunotherapy. Jessa reports frequent sneezingfits that are triggered by various things including strong fragrances andsometimes random foods. She recently noticed sneezing after eating peanutbutter, however denies associated systemic symptoms. Jessa regularly eatspeanut butter without issue. Jessa reports occasional cough that is triggered when shetalks or if she is laughing. She feels her cough is due to drainage. Tato had a breathing test completed with her PCP, however records are notavailable for review. She reports she was given an albuterol inhaler, which shehas never used. She denies history of hospitalizations due to lower airway symptoms.Jessa is a prior smoker, quit 30 years ago. She actively smoked for twentyyears, for a portion of that she smoked one pack per day. Additionally, Jessa believes she was told to avoidpenicillin at one point in her life. Details are not clear. She thinks she hastolerated amoxicillin before, however it is unclear when she was last prescribedamoxicillin. She denies a history of physician-diagnosed recurrent sinusitis or otitis media, recurrent pneumonia, asthma/RAD, eczema, food allergies, urticaria/angioedema, medication allergies, contact dermatitis, latex allergy, eosinophilic esophagitis or stinging insect hypersensitivity. Today, she reports no fevers, chills, night sweats or other constitutional symptoms. * Allergic Rhinoconjunctivitis: Allergic rhinitis D o you have or suspect you have allergic rhinitis (itchy eyes, sneezing, congestion or runny nose triggered by allergies)? Y es W hich areas and what symptoms are involved? Please fill out each section below as needed. e yes,ears,cough,nose,headache,sinuses W hich of the following trigger your allergic rhinitis symptoms? s inus infections,foods,food additives,shahnaz or any other acoholic beverage,house cleaning (dusting or vacuuming),emotions or stress,laughter,cigarette smoke,mold,damp or musty areas,colds or flu,perfumes,hair spray,cleansers,detergents,soaps,air pollution,car or truck exhaust,anti-statics or fabric softeners for clothes,spring (season),summer (season),fall (season),winter (season),cats,dogs D o you have any of the following other symptoms associated with your allergic rhinitis? e xcessive daytime sleepiness,restless sleep,more irritability than in the past,hog scalder headaches Eyes S pecific affected area: b oth (bilateral) O ccurence? c ontinuous W hen does this mostly occur? a nytime S ymptoms: i tching,watering,redness,sensitive to light E ffective treatments: o ther OTC medication Ears S pecific affected area: b oth (bilateral) H ow often? i ntermittent S ymptoms: a maxim,infections Nose S pecific area affected: b oth (bilateral) O ccurence? c ontinuous W hen does this mostly occur? a nytime S ymptoms? i tching,congestion,sneezing jags,postnasal drainage,sinus infection E ffective treatments? o ral antihistamines (Zyrtec or Tasha or Claritin),nasal steroid sprays (Flonase or Nasonex or Veramyst) Sinuses D o you have sinus pain? Y es W here? c enter of forehead above eyes (frontal) H ave you lost sense of taste? N o H ave you been treated with antibiotics for sinusitis? Y es W hich antibiotics? a moxicillin H ow often in the past year? o nce W hat is the longest duration of antibiotics prescribed and completed? 3 -[address] any of the following treatments improved your sinus symptoms? n o treatment to date H ave you ever had a CT scan or xray? Y es W hen? 08/2023 W here? O ther outpatient facility or radiology center H ave you ever undergone sinus surgery? N o Cough F requency: d aily I s cough more bothersome during night? N o I s phlegm produced? N o E ffective treatments? n filiberto spray steroid (Flonase or Nasonex) Headache S pecific area(s) affected? c enter forehead (frontal),deep inside head (sphenoid),back area of the head O ccurence? i ntermittent H ow frequent? d aily W hat time of day does this mostly occur? a nytime A ccompanying symptoms? n ausea * Asthma: Cough D o you have a recurrent cough? Y es A pproximately, when did your cough start??01/28/2024 H ow often do you cough? d aily W hat triggers your cough? l aughter,cigarette smoke,oily or fried foods,spring (season), (season),fall (season),winter (season) I s your cough more bothersome at night? N o I s sputum produced? N o Wheezing D o you have recurrent wheezing or a history of wheezing sometime in your life? N o D id you have symptoms of asthma as a child??No D id you have frequent respiratory infections as a child? Y es W ere you ever hospitalized in the first 12 months of life for a respiratory infection in childhood? N o D o you still have wheezing? N o Nocturnal Symptoms D o you have any of the following respiratory symptoms at night? c oughing that interrupts sleep Physical Performance H ow many blocks can you walk? (Enter 99 for unlimited) 1 H ow many flights of stairs can you climb without stopping? (Enter 99 for unlimited) 1 I f there are limitations, what symptoms limit further activity? s hortness of breath,fatigue,weakness D o you have any of the following additional problems? e xcessive daytime sleepiness,restless sleep,difficulty concentrating during the daytime,more irritability than in the past,headaches in the morning * Urticaria: Urticaria (hives) D o you have recurrent hives? N o * Atopic dermatitis: Atopic dermatitis - Eczema D o you have chronic or recurrent atopic dermatitis or eczema? N o * Other Rash and Contact Dermatitis: Other rashes and contact dermatitis H ave you ever had any other form of rash or contact dermatitis? N o * Prior Evaluations and Treatments: Prior evaluations and treatments H ave you been evaluated by another physician for allergic rhinitis, cough, wheezing, asthma, urticaria, angioedema, atopic dermatitis or eczema??No H ave you undergone testing for any aforementioned conditions or symptoms? N o H ave you ever been on allergy immunotherapy??No H ave you ever passed out during a blood draw, shot or vaccination? N o Last dose of antihistamine: c etirizine (Zyrtec) 1 09/30/2023 d iphenhydramine (Benadryl) 1 09/29/2023 D o you take any other psychiatric medication??Yes N swapna: O ther L ast dose? 1 10/07/2023 * Infections: Vaccination History H ave you ever had a flu shot? Y es D ate of last flu shot? 1 H ave you ever had a pneumococcal vaccine ([id number]-Szbtmnm-Dbltpkeew)? N o H ave you ever had a tetanus vaccine (YBqk-Ecov-Hr)? Y es Ear Infections D o you have frequent ear infections? Y es H ow many episodes in your entire life? 5 00 H ow many episodes over the past 12 months??1 D id you ever have ear tubes placed to help alleviate recurrent ear infections? Y es Sinus Symptoms and Surgery D o you have chronic or recurrent sinus symptoms? Y es D o you have a history of nasal polyps? N o D o you have sinus pain? Y es D o you have a loss of sense of taste? N o H ave you used any of the following treatments for your sinuses? n filiberto spray decongestants H ave you ever had a sinus CT or X-Ray? Y es W hen? 1 08/29/2023 W ere the results normal or abnormal? a bnormal H ave your ever undergone sinus surgery? N o Bronchitis History D o you get frequent bronchitis? N o Pneumonia History H ave you ever had pneumonia or recurrent pneumonia? N o Skin and Other Infections D o you get frequent skin infections (cellulitis)? N o D o you get any other frequent infections??No * Food allergy: Food Allergy D o you currently have or have you ever had any proven or suspected food allergies? N o * Eosinophilic GI: Eosinophilic Gastrointestinal Disease D o you have difficulty swallowing foods or have you previously needed to have your esophagus dilated for food impaction or have you been diagnosed with eosinophilic gastrointestinal disease? N o * Stinging Insects: Insect Reaction(s) H ave you ever experienced a stinging insect reaction? N o * Medication allergy: Medication Allergy D o you feel you are allergic to any medications? N o H ave you been evaluated by an technical services assistant previously for possible drug allergy? Y es D ate of evaluation: 0 08/29/2004 W as any test performed? Y es W hat type of testing? s kin testing T est results were: a bnormal * ROS: A LLERGY: runny nose Y es. s cratchy throat N o. i tchy eyes Y es. e ar fullness N o. s inus congestion Y es. P ositive p er the HPI and history, otherwise unremarkable. S PECIAL SENSES: Positve for n one. c ataracts Y es. g laucoma?No. l oss of hearing Y es. i tching in ears Y es. r inging in ears Y es.?loss of balance Y es. l oss of smell N o. d ry eyes Y es. e xcessive tearing N o. i tching eyes Y es. l oss of taste N o. c onjunctivitis N o.?ear infections Y es. C ONSTITUTIONAL: weight gain Y es. l oss of appetite Y es. f ever N o. w eakness Y es. w eight loss N o. f atigue Y es. n ight sweats N o. P ositive for n one. E NT: cold N o. c ough Y es. e pistaxis N o. h earing loss Y es. c hange in voice Y es. s ore throat N o. r inging in ears Y es. s inus pain Y es. P ositive p er the HPI and history, otherwise unremarkable. R ESPIRATORY: shortness of breath Y es. c hest pain Y es. c hest congestion N o. c ough Y es. P ositive p er the HPI and history, otherwise unremakable. O PHTHALMOLOGY: diminished vision Y es. e ye irritation Y es. d rainage from eyes N o. b lurring of vision N o. s easonal eye sx N o. P ositive for p er the HPI and history, otherwise unremarkable. i tching Y es. s ensitivity to light Y es. d ischarge N o. w atering Y es. s welling of the eyelids?No. r edness Y es. E NDOCRINOLOGY: fatigue Y es. p olydipsia N o. p olyuria N o. w eight loss N o. s leep disturbance Y es. c old intolerance Y es. h eat intolerance N o. d iabetes N o. P ositive for n one. C ARDIOLOGY: chest pain Y es. p alpitations N o. l eg edema?Yes. d izziness Y es. s hortness of breath Y es. P ositive for n one.? G ASTROENTEROLOGY: dysphagia N o. a bdominal pain N o. n ausea?Yes. v omiting N o. c onstipation N o. d iarrhea N o. b lood in stool?No. i ndigestion Y es. h emorrhoids N o. P ositive for n one. ? U ROLOGY: difficulty urinating N o. b lood in urine Y es.?frequent urination N o. u rinary incontinence N o. r ecurrent UTI N o. P ositive for n one. D ERMATOLOGY: rash N o. m ole Y es. l umps N o. d ry or sensitive skin N o. h digna (urticaria) N o. a cne N o. s kin cancer N o. P ositive for p er the HPI and history, otherwise unremakable. N EUROLOGY: headache Y es. t ingling numbness Y es. s eizures N o. i nsomnia Y es. m sherry loss Y es. d izziness Y es. g ait abnormality N o. P ositive for n one. H EMATOLOGY/LYMPH: Positive for n one. M USCULOSKELETAL: joint swelling Y es. j oint pain Y es. l eg cramps Y es. j oint stiffness Y es. s ciatica N o. o steoporosis N o. f racture N o. c arpal tunnel N o. g out N o. P ositive for n one. ? P SYCHOLOGY: high stress level Y es. d epression Y es. s leep disturbances Y es. s uicidal ideation N o. e ating disorder N o. m ental or physical abuse Y es. a nxiety Y es. P ositive for n one. F EMALE REPRODUCTIVE: heavy periods N o. h ot flashes N o. a bnormal vaginal discharge N o. s exually active N o. i nfertility N o. f requent yeat infections N o. p elvic pain N o. b reast pain Y es. n ipple discharge No. A re you ? N o. A re you planning on a future pregancy? N o. ? A ll other review of systems per the HPI and history, otherwise unremarkable. * Medical History: * Surgical History: N o Surgical History documented. * Hospitalization/Major Diagno stic Procedure: N o Hospitalization History. * Family History: F ather: Yes. M other: Yes. P aternal Grand Father: No. P aternal Grand Mother: No. M aternal Grand Father: No. M aternal Grand Mother: No. S iblings: Yes. C hildren: Yes. unknown-adopted. * Social History: M arital Status What is your marital status? d ivorced A lcohol Screening Do you ever drink alcoholic beverages? Y es Number of drinks per occasion: 1 Frequency? E very 6 months S moking Have you ever smoked tobacco: f ormer smoker How old were you when you started smoking? 1 3 How old were you when you quit smoking? 3 6 How many cigarettes a day did you smoke? 1 1 to 20 Are you a : f ormer smoker R ecreational drug use Have you ever used recreational drugs? Y es What kind of drugs? m arijuana D etails on consumption of certain products? Do you regularly consume products with aspartame; Equal or NutraSweet? N o Do you regularly consume products with artificial coloring??Yes Have you ever noticed worsening of your rash with these food items? N o A re any of the following personal care products containing fragrance, dye or preservatives used regularly? Shampoo: Y es Conditioner: Y es Soap: Y es Laundry Detergent: Y es Fabric Softener: Y es Deodorant: Y es Perfume, cologne, after shave: N o Air freshners or other scented products: N o Hair coloring dyes or rinses: Y es Other: N o O ccupation Are you currenly employed? N o Have you had any job with high exposure to fumes, chemicals, dust or other noxious substances? Y es Are you currently a student? N o E nvironmental History Living environment: a partment Where is the home located? s [place] Age of home: 1 0 How long have you lived there? 5 years or more How many people live in the home? 1 H ome description Basement: Y es Any water damage in basement? N o Smokers in the home? N o Smokers outside the home? N o Air Conditioning? Y es Central Air? Y es Forced air heating? Y es Gas or electric? g as Fireplace? N o Wood burning stove? N o Do you vacuum the home? Y es Air purification systems? N o Pillow and mattress dust-proof encasings? N o Do you use a humidifier? N o Do you own any pets? N o Fabric softeners used? Y es Plants in the home? N o Is there carpeting in your bedroom? Y es Age of carpet? 1 0 Do you have [id number] carpeting? Y es What is the age of your carpeting? 1 0 What is the age of your mattress (years)? 1 4 What material(s) are used to manufacture your bedding and pillow? n atural fiber (e.g. cotton) What is the age of your pillow (years)? 1 What material are your bedding items made of? n atural fiber (e.g. cotton) Do you sleep with quilts or blankets or a duvet? Y es What material? n atural fiber (e.g. cotton) T obacco Control (Standard) Tobacco use: F ormer smoker * Medications: T akingBenadryl Allergy 25 MG Tablet 1 tablet at bedtime as needed Orally Once a day Fluticasone Propionate 50 MCG/ACT Suspension 1 spray in each nostril Nasally Twice a day Cetirizine HCl 10 MG Tablet 1 tablet Orally Once a day Xanax 1 MG Tablet 1 tablet Orally Twice a day Lunesta 3 MG Tablet 1 tablet immediately before bedtime Orally Once a day Albuterol Sulfate HFA 108 (90 Base) MCG/ACT Aerosol Solution Inhalation Medication List reviewed and reconciled with the patientTaking Benadryl Allergy 25 MG Tablet 1 tablet at bedtime as needed Orally Once a day Taking Fluticasone Propionate 50 MCG/ACT Suspension 1 spray in each nostril Nasally Twice a day Taking Cetirizine HCl 10 MG Tablet 1 tablet Orally Once a day Taking Xanax 1 MG Tablet 1 tablet Orally Twice a day Taking Lunesta 3 MG Tablet 1 tablet immediately before bedtime Orally Once a day Taking Albuterol Sulfate HFA 108 (90 Base) MCG/ACT Aerosol Solution Inhalation Medication List reviewed and reconciled with the patient * Allergies: N .K.D.A.no[Allergies Verified] Objective: * Vitals: B P:134/84mm Hg, HR:83/min, Pulse Oximetry:98%, Ht: 67 in, Wt: 219.6 lbs, BMI:34.39Index. * Examination: G eneral examination: General appearance: p lephani, well-developed, well-nourished, female, in no apparent distress, speaking in full sentences. HEENT: c onjunctiva are normal bilaterally, TMs without evidence of acute infection, turbinates 2+ swollen and pale inferiorly bilaterally, clear rhinorrhea is present, no polyps noted, no septal perforation, posterior oropharynx is clear without exudates, erythema on pharyngeal wall, no exudates, no tongue swelling, and uvula is midline. Oral cavity: n ormal, no lesions. Breasts : n ot performed. Heart: R RR, S1-S2, no murmurs, no rubs, no gallops. Lungs: c lear to auscultation in all lung membreno, no wheezes, no crackles, no rhonchi. Neurologic exam: u nremarkable. Skin: n ormal, no visible rash, dermatographism, urticaria, angioedema. Back: n ormal. Extremities: n ormal ROM, no clubbing, no cyanosis, no edema. Genitalia: n ot performed. Assessment: * Assessment: 1. A llergic rhinitis due to pollen - J30.1 (Primary) 2 . O ther allergic rhinitis - J30.89 3 . O ther chronic allergic conjunctivitis - H10.45 ?4. 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 S neezing - R06.7 6 . C ough, unspecified - R05.9 7 . A llergy status to penicillin - Z88.0 8 . E levated blood-pressure reading, without diagnosis of hypertension - R03.0 Plan: * Treatment: 2. O ther allergic rhinitis Notes: Follow allergen avoidance, meds and consider SCIT as an adjunctive treatment to current regimen 3. O ther chronic allergic conjunctivitis Notes: Given ocular signs and symptoms I encouraged allergy avoidance measures and meds as above. If symptoms persist, consider adding additional medications including intraocular antihistamine/mast cell stabilizer, PRN and consider SCIT as an adjunctive measure 4. H ypertrophy of nasal turbinates L AB: -Respiratory Allergens w/Total IgE Area 8 Notes: See plan above 5. S raymond L AB: -Tryptase (389178) Notes: Jessa reports persistent sneezing with various triggers including strong fragrances. She also recently noted sneezing after eating peanut butter, however denied associated systemic symptoms. She regularly eats peanut butter without issue. - Will order baseline tryptase level for rule out of MCAS, however discussed that symptoms described are likely due to non-allergic rhinitis. Will trial ipratropium bromide as above 6. C ough, unspecified Continue Albuterol Sulfate HFA Aerosol Solution, 108 (90 Base) MCG/ACT, Inhalation. Notes: Jessa reports occasional cough that she feels is due to drainage. She denies shortness of breath or wheezing. She denies history of hospitalizations due to lower airway symptoms. Jessa was recently prescribed an albuterol inhaler by her PCP, however has not used it. She also reports compelting a breathing test, however no records to review. She is a prior smoker, quit 30-years ago. Reports being UTD on lung cancer screenings. - Records requested from PCP to review spirometry. - Will trial ipratropium bromide as above for concerns of PND. If cough persists, consider trial of ICS or ICS/LABA. - Continue PABLO as-needed. - Follow-up in 4 weeks for further evaluation and management 7. A llergy status to penicillin Notes: Jessa recalls being told at some point to avoid penicillin, additional details are unclear. Continue avoidance at this time, discuss options for testing next visit 8. E levated blood-pressure reading, without diagnosis of hypertension Notes: BP elevated today without symptoms of urgency or emergency. Continue serial checks and follow-up with PCP * Procedures: S kin Testing: Number of Skin Tests Performed (including controls): A eroallergen Y es E picutaneous 7 2 T otal (Epicutaneous) 7 2 Epicutaneous (New) s kin testing was performed to common aeroallergens; revealing positive reactions to; [place]; Elm; Sweet Gum; [place] (Eritrean); DM f; Phoma Herbarum; positive and negative controls responded appropriately. * Procedure Codes: 9 5004 PRICK TESTS, Units: 72.00 G8427 DOC MEDS VERIFIED W/PT OR RE * Preventive Medicine: Counseling: D iet a s tolerated. E xercise C onsider PABLO use PRN, prior to exercise as per the asthma action plan. M edication instruction: W atch for side effects of prescribed medications, Nasal steroid/antihistamine instruction: avoid septum. E ducation: G ENERAL EDUCATION: Our staff spent an additional 30 minutes in direct contact with the patient educating them on their current diagnoses and proper treatment and prevention of symptoms and the proper use of medications. E ducation 2: A RC EDUCATION: Our staff discussed the appropriate allergen avoidance measures and medication utilization including upper airway hygiene with daily nasal washes given the patient's clinical status and diagnoses. SCIT EDUCATION: Discussed allergy immunotherapy including the relative risks, benefits and alternatives to this treatment as an adjunctive measure to current therapy, Allergy Immunotherapy: Risks: bleeding, infection, allergic reaction, anaphylaxis = severe allergic reaction that can cause ; Benefits: reduced need for medications, improved symptoms, disease modification. Alternatives: watch/wait, change medication regimen, improve allergy avoidance measures, Our staff discussed the warning signs of anaphylaxis and the indications to use self-injectable epinephrine and seek urgent or emergent care. P atient education material sent to portal? Y es C are goal follow up plan BMI management provided Y es Above Normal BMI Follow-up D ietary management education, guidance, and counseling B P Management: LIFESTYLE RECOMMENDATION: H ypertension education REFERRAL TO ALTERNATIVE / PRIMARY CARE PROVIDER: Naye boatengal to general practitioner * Follow Up: 4 Weeks (Reason: Evaluation and Management, Laboratory Review) * Billing Information: * Visit Code: 16239 Office Visit, New Pt., Level 4. Modifiers: 25 * Procedure Codes: 20531 PRICK TESTS. Units: 72.00. G8427 DOC MEDS VERIFIED W/PT OR RE. Images * 08/07/2024 Aeroallegn SPT * MANAGER Electronically co-signed by Tyler Schultz MD, FAAAAI on 09/03/2024 at 08:13 PM NC MANAGER Sign off status: Completed true * Provider: EARL Woodson-C Date: 10/08/2023 Generated for Eloy bhatti/Scott/eTransmitting on: 0 12/10/2024 01:33 PM CDT History and Physical Notes * HPI (History of Present Illness) Category Sub-Category Detail Notes Category Not es *Introduction I had the pleasure of seeing Jessa Campos, a 69-year-old female with past medical history significant for anxiety who presents for allergy evaluation and management. She is alone for today's visit. Jessa endorses upper airway symptoms concerning for uncontrolled atopic disease. Descriptors of her symptoms are outlined below. Primarily, she complains of persistent sneezing and post-nasal drip. She takes Zyrtec daily with moderate benefit. Also uses Flonase as-needed. Jessa was previously evaluated by a different technical services assistant, Dr. Phelan, who told her she was allergic to cat and dust mite. She has never undergone specific allergen immunotherapy. Jessa reports frequent sneezing fits that are triggered by various things including strong fragrances and sometimes random foods. She recently noticed sneezing after eating peanut butter, however denies associated systemic symptoms. Jessa regularly eats peanut butter without issue. Jessa reports occasional cough that is triggered when she talks or if she is laughing. She feels her cough is due to drainage. She recently had a breathing test completed with her PCP, however records are not available for review. She reports she was given an albuterol inhaler, which she has never used. She denies history of hospitalizations due to lower airway symptoms. Jessa is a prior smoker, quit 30 years ago. She actively smoked for twenty years, for a portion of that she smoked one pack per day. Additionally, Jessa believes she was told to avoid penicillin at one point in her life. Details are not clear. She thinks she has tolerated amoxicillin before, however it is unclear when she was last prescribed amoxicillin. She denies a history of physician-diagnosed recurrent sinusitis or otitis media, recurrent pneumonia, asthma/RAD, eczema, food allergies, urticaria/angioedema, medication allergies, contact dermatitis, latex allergy, eosinophilic esophagitis or stinging insect hypersensitivity. Today, she reports no fevers, chills, night sweats or other constitutional symptoms *Allergic Rhinoconjunctivitis Eyes Specific affected area:: both (bilateral) Occurence?: continuous When does this mostly occur?: anytime Symptoms:: itching,watering,redness,sens itive to light Effective treatments:: other OTC medicat ion Ears Specific affected area:: both (b ilateral) How often?: intermittent Symptoms:: ache,infections Cough Frequency:: daily Is cough more bothersome during night?: No Is phlegm produced?: No Effective treatments?: nasal spray stero id (Flonase or Nasonex) Nose Specific area affected:: both (b ilateral) Occurence?: continuous When does this mostly occur?: anytime Symptoms?: itching,congestion,sneezing j ags,postnasal drainage,sinus infection Effective treatments?: oral antihistamines (Zyrtec or Tasha or Claritin),nasal steroid sprays (Flonase or Nasonex or Veramyst) Headache Specific area(s) aff ected?: center forehead (frontal),deep inside head (sphenoid),back area of the head Occurence?: intermittent How frequent?: daily What time of day does this mostly occur? : anytime Accompanying symptoms?: nausea Sinuses Do you have sinus pain?: Yes Where?: center of forehead above eyes (frontal) Have you lost sense of taste?: No Have you been treated with antibiotics f or sinusitis?: Yes Which antibiotics?: amoxicillin How often in the past year?: once What is the longest duration of antibiotics prescribed and completed?: 3-5 days Have any of the following tr eatments improved your sinus symptoms?: no treatment to date Have you ever had a CT scan or xray?: Ye s When?: 06/2024 Where?: Other outpatient facility or radiology center Have you ever undergone sinus surgery?: No Allergic rhinitis Do you have or suspe ct you have allergic rhinitis (itchy eyes, sneezing, congestion or runny nose triggered by allergies)?: Yes Which areas and what symptoms are involved? Please fill out each section below as needed.: eyes,ears,cough,nose,headache,sinuses Which of the following trigger your allergic rhinitis symptoms?: sinus infections,foods,food additives,shahnaz or any other acoholic beverage,house cleaning (dusting or vacuuming),emotions or stress,laughter,cigarette smoke,mold,damp or musty areas,colds or flu,perfumes,hair spray,cleansers,detergents,soaps,air pollution,car or truck exhaust,anti-statics or fabric softeners for clothes,spring (season),summer (season),fall (season),winter (season),cats,dogs Do you have any of the following other symptoms associated with your allergic rhinitis?: excessive daytime sleepiness,restless sleep,more irritability than in the past,hog scalder headaches *Asthma Cough Do you have a recurrent cough?: Yes Approximately, when did your cough start?: 01/28/2024 How often do you cough?: daily What triggers your cough?: laughter,cigarette smoke,oily or fried foods,spring (season), (season),fall (season),winter (season) Is your cough more bothersome at night?: No Is sputum produced?: No Wheezing Do you have recurren t wheezing or a history of wheezing sometime in your life?: No Did you have symptoms of asthma as a chi ld?: No Did you have frequent respiratory infect ions as a child?: Yes Were you ever hospitalized i n the first 12 months of life for a respiratory infection in childhood?: No Do you still have wheezing?: No Nocturnal Symptoms Do you have any of t he following respiratory symptoms at night?: coughing that interrupts sleep Physical Performance How many blocks can you wal k? (Enter 99 for unlimited): 1 How many flights of stairs c an you climb without stopping? (Enter 99 for unlimited): 1 If there are limitations, wh at symptoms limit further activity?: shortness of breath,fatigue,weakness Do you have any of the follo wing additional problems?: excessive daytime sleepiness,restless sleep,difficulty concentrating during the daytime,more irritability than in the past,headaches in the morning *Infections Vaccination History Have you ever had a flu sh ot?: Yes Date of last flu shot?: 05/29/2012 Have you ever had a pneumococcal vaccine ([id number])?: No Have you ever had a tetanus vaccine (DTa p-Tdap-Td)?: Yes Ear Infections Do you have frequent ear infecti ons?: Yes How many episodes in your entire life?: 500 How many episodes over the past 12 months?: 1 Did you ever have ear tubes placed to help alleviate recurrent ear infections?: Yes Sinus Symptoms and Surgery Do you have c hronic or recurrent sinus symptoms?: Yes Do you have a history of nasal polyps?: No Do you have sinus pain?: Yes Do you have a loss of sense of taste?: N o Have you used any of the fol lowing treatments for your sinuses?: nasal spray decongestants Have you ever had a sinus CT or X-Ray?: Yes When?: 06/29/2024 Were the results normal or abnormal?: abnormal Have your ever undergone sinus surgery?: No Bronchitis History Do you get frequent bronchiti s?: No Pneumonia History Have you ever had pneumonia or recurrent pneumonia?: No Skin and Other Infections Do you get frequent sk in infections (cellulitis)?: No Do you get any other frequent infections ?: No *Other Rash and Contact Dermatitis Other rashes and contact dermatitis Have you ever had any other form of rash or contact dermatitis?: No *Atopic dermatitis Atopic dermatitis - Eczema Do you have chronic or recurrent atopic dermatitis or eczema?: No *Urticaria Urticaria (hives) Do you have re current hives?: No *Medication allergy Medication Allergy Do you fe el you are allergic to any medications? : No Have you been evaluated by a n technical services assistant previously for possible drug allergy?: Yes Date of evaluation:: 08/29/2004 Was any test performed?: Yes What type of testing?: skin testing Test results were:: abnormal *Stinging Insects Insect Reaction(s) Have you ev er experienced a stinging insect reaction? : No *Prior Evaluations and Treatments Prior evaluations and treatments Have you been evaluated by another physician for allergic rhinitis, cough, wheezing, asthma, urticaria, angioedema, atopic dermatitis or eczema?: No Have you undergone testing for any afore mentioned conditions or symptoms?: No Have you ever been on allergy immunother apy?: No Have you ever passed out during a blood draw, shot or vaccination?: No Last dose of antihistamine: cetirizine (Zyrtec): 07/30/2024 diphenhydramine (Benadryl): 07/29/2024 Do you take any other psychiatric medica tion?: Yes Name:: Other Last dose?: 08/06/2024 *Food allergy Food Allergy Do you currently have or have you ever had any proven or suspected food allergies?: No *Eosinophilic GI Eosinophilic Gastroi ntestinal Disease Do you have difficulty swallowing foods or have you previously needed to have your esophagus dilated for food impaction or have you been diagnosed with eosinophilic gastrointestinal disease?: No Examination Category Sub-Category Detail Notes Category Not es General examination HEENT: conjunctiva are normal bilaterally, TMs without evidence of acute infection, turbinates 2+ swollen and pale inferiorly bilaterally, clear rhinorrhea is present, no polyps noted, no septal perforation, posterior oropharynx is clear without exudates, erythema on pharyngeal wall, no exudates, no tongue swelling, and uvula is midline Heart: RRR, S1-S2, no murmu rs, no rubs, no gallops Lungs: clear to auscultatio n in all lung membreno, no wheezes, no crackles, no rhonchi Extremities: normal ROM, no clubb ing, no cyanosis, no edema General appearance: pleasant, well-devel oped, well-nourished, female, in no apparent distress, speaking in full sentences Skin: normal, no visible r mi, dermatographism, urticaria, angioedema Neurologic exam: unremarkable Oral cavity: normal, no lesions Breasts : not performed Back: normal Genitalia: not performed
--- OUTSIDE RECORDS SUMMARY | 2024-12-10 13:33 | XMS_ITS | Data Portability ---
Author Organization [facility] [employer] [facility], [employer] Address [address] [place] [address] Assessment No assessment recorded. Plan of Treatment Reminders Order Date Submit Date Provider Last Modified By Organization Details Last Modified Time Details Appointments None recorded. Lab lipid panel w/ direct LDL, serum 2023 024 [facility], [address], [place], [address], 4 04:36:34 CMP, serum or plasma 2023 024 [facility], [address], [place], [address], 4 04:36:33 H pylori Ag, stool 2023 024 [facility], [address], [place], [address], 4 15:47:55 CBC w/ auto diff 2023 024 [facility], [address], [place], [address], 4 03:36:13 drug screen, urine 2023 024 [facility], [address], [place], [address], 4 03:36:12 HbA1c (hemoglobi n A1c), blood 2023 024 [facility], [address], [place], [address], 4 03:36:15 C-peptide, serum 2023 024 [facility], [address], [place], [address], 4 03:36:15 lipid panel w/ direct LDL, serum 2023 024 [facility], [address], [place], [address], 4 03:36:14 CMP, serum or plasma 2023 024 [facility], [address], [place], [address], 4 03:36:14 hepatitis C virus Ab, serum 2023 024 [facility], [address], [place], [address], 4 12:59:15 H pylori Ag, stool 2023 024 [facility], [address], [place], [address], 4 12:59:16 Referral neurologis t referral 2023 024 [email or web address] Janak Marques MD, [facility] , [address], [place], [address], 4 16:05:[address] referral 2023 024 [email or web address] Galilea Scott, [address], [place], [address], Ph [phone] 4 16:05:48 gastroente rologist referral 2023 024 [email or web address] Goff MD, [address], [place], [address], 4 16:05:47 neurologis t referral 2023 024 [email or web address] Janak Marques MD, [address] [facility] , [address], [place], [address], 4 13:28:[address] referral 2023 024 [email or web address] Galilea Scott, [address], [place], [address], Ph [phone] 13:28:16 optometris t referral 2023 024 [email or web address] Not available 13:45:38 gastroente rologist referral 2023 024 [email or web address] Goff MD, [address], [place], [address], 4 13:28:16 Procedures None recorded. Surgeries None recorded. Imaging XR, lumbar spine 2023 [facility], [address], [place], [address], 4 13:54:47 MAMMO, screening, digital, bilateral 2023 [facility], [address], [place], [address], 4 04:10:27 bone density 2023 [facility], [address], [place], [address], 4 04:10:26 XR, chest, 2 view 2023 [facility], [address], [place], [address], 4 13:55:51 US, abdominal aorta 2023 024 [facility], [address], [place], [address], 4 13:55:51 home sleep study 2023 [place], [address], [address], [place], [address], 4 04:10:28 MAMMO, screening, digital, bilateral 2023 [facility], [address], [place], [address], 4 04:03:34 bone density 2023 024 [facility], [address], [place], [address], 4 04:03:34 electrocar diogram 2023 024 [facility], [facility], [address], [place], [address], 4 14:20:44 Medication Orders Medrol (Justen) 4 mg tablets in a dose pack 2023 024 [place] [facility][id number], [address], [place], [id number], 4 15:47:48 bupropion HCl XL 150 mg 24 hr tablet, extended release 2023 024 [place] [facility][id number], [address], [place], [id number], 15:47:50 albuterol sulfate HFA 90 mcg/actuat ion aerosol inhaler 2023 [facility] #46042, [address], [place], [place], [id number], 15:47:49 omeprazole 20 mg capsule,de layed release 2023 [facility] #66112, [address], [place], [place], [id number], 15:47:52 Auvelity 45 mg-105 mg tablet, extended release 2023 [facility] #56268, [address] [facility], [place], [place], [id number], 15:31:15 eszopiclon e 2 mg tablet 2023 [facility] #80773, [address] [facility] [facility] [address] [facility], [place], [place], [id number], 12:59:08 omeprazole 20 mg capsule,de layed release 2023 [facility] #48907, [address] [facility] [address] [facility], [place], [place], [id number], 12:59:20 Patient TargetsNo targets recorded. Patient Instructions Encounter Date Encounter Id Patient Instructions Last Modified By Organization Details Last Modified Time 03/30/2024 [id number] mammogram: about this test [email or web address] Not available 03/30/2024 12:59:08 dizziness: care instructions [email or web address] Not available 03/30/2024 12:59:08 Preventing Depression From Coming Back: Care Instructions [email or web address] Not available 03/30/2024 12:59:08 spirometry testing* [email or web address] Not available 03/30/2024 14:13:53 infection from tattoos: care instructions [email or web address] Not available 03/30/2024 12:59:09 living will [email or web address] Not available 09/2023 12:44:45 06/12/2024 [id number] mammogram: about this test [email or web address] Not available 06/12/2024 15:47:40 Preventing Depression From Coming Back: Care Instructions [email or web address] Not available 06/12/2024 15:47:40 cough: care instructions [email or web address] Not available 06/12/2024 15:47:40 dizziness: care instructions [email or web address] Not available 06/12/2024 15:47:39 infection from tattoos: care instructions [email or web address] Not available 06/12/2024 15:47:39 snoring: care instructions [email or web address] Not available 06/12/2024 15:49:11 Reason for Referral Neurologist Referral for Diz ziness Referring Physician: Mignon Marie Internal [facility], Encounter Date: 03/30/2024 First Breaker Feeder Referral for Sc reening for malignant neoplasm of cervix Referring Physician: Mignon Marie Internal Medicine, Encounter Date: 03/30/2024 Manager Film Referral for Screening for malignant neoplasm of colon Referring Physician: Madelyn Snell Medicine, Encounter Date: 03/30/2024 [employer]cre[employer] T[employer]ical Helicopter Referral for Will lt health examination Referring Physician: Mignon Marie Internal [facility], Encounter Date: 03/30/2024 Neurologist Referral for Diz ziness Referring Physician: Mignon Marie Internal Medicine, Encounter Date: 06/12/2024 First Breaker Feeder Referral for Sc reening for malignant neoplasm of cervix Referring Physician: Madelyn Snell Medicine, Encounter Date: 06/12/2024 Manager Film Referral for Screening for malignant neoplasm of colon Referring Physician: Madelyn Snell Medicine, Encounter Date: 06/12/2024 Results Created Date Observation Date Name Description Value Unit Range Abnormal Flag Note LastModifiedBy Organization Detail LastModifiedTime 03/30/20 24 03/30/2024 ced metry testi ng* Spirometry Not Available [facility], [facility] [address], [place], [address], 03/30/2024 12:41:30 04/02/20 24 04/03/2024 DRUG PROFI LE,UR ,9 DRUGS ,BUND amphetamines , urine NEGATI VE NG/mL cutoff =1000 Amphe tamin e test inclu madhu Amphe tamin e and Metha mphet amine . Not Available [facility] ([facility]) [address] [place], [address], 04/05/2024 03:36:12 04/02/20 24 04/03/2024 DRUG PROFI LE,UR ,9 DRUGS ,BUND barbiturate NEGATI VE NG/mL cutoff =300 Not Available [facility] ([facility]) [address] [place], [address], 04/05/2024 03:36:12 04/02/20 24 04/03/2024 DRUG PROFI LE,UR ,9 DRUGS ,BUND benzodiazepi alex SEE FINAL RESULT S NG/mL cutoff =300 Not Available [facility] ([facility]) [address] [place], [address], 04/05/2024 03:36:12 04/02/20 24 04/03/2024 DRUG PROFI LE,UR ,9 DRUGS ,BUND cannabinoid NEGATI VE NG/mL cutoff =50 Not Available [facility] ([facility]) [address] [place], [address], 04/05/2024 03:36:12 04/02/20 24 04/03/2024 DRUG PROFI LE,UR ,9 DRUGS ,BUND cocaine (metab.) NEGATI VE NG/mL cutoff =300 Not Available [facility] ([facility]) [address] [place], [address], 04/05/2024 03:36:12 04/02/20 24 04/03/2024 DRUG PROFI LE,UR ,9 DRUGS ,BUND opiates NEGATI VE NG/mL cutoff =300 Opiat e test inclu madhu Codei ne and Morph ine only. Not Available [facility] ([facility]) [address] [place], [address], 04/05/2024 03:36:12 04/02/20 24 04/03/2024 DRUG PROFI LE,UR ,9 DRUGS ,BUND phencyclidin e NEGATI VE NG/mL cutoff =25 Not Available [facility] ([facility]) [address] [place], [address], 04/05/2024 03:36:12 04/02/20 24 04/03/2024 DRUG PROFI LE,UR ,9 DRUGS ,BUND methadone screen, urine NEGATI VE NG/mL cutoff =300 Not Available [facility] ([facility]) [address] [place], [address], 04/05/2024 03:36:12 04/02/20 24 04/03/2024 DRUG PROFI LE,UR ,9 DRUGS ,BUND propoxyphene , urine NEGATI VE NG/mL cutoff =300 Not Available [facility] ([facility]) [address] [place], [address], 04/05/2024 03:36:12 04/02/20 24 04/04/2024 DRUG PROFI LE,UR ,9 DRUGS ,BUND benzodiazepi alex POSITI VE cutoff =300 abnormal Not Available [facility] ([facility]) [address] [place], [address], 04/05/2024 03:36:12 04/02/20 24 04/04/2024 DRUG PROFI LE,UR ,9 DRUGS ,BUND nordiazepam NEGATI VE cutoff =300 Not Available [facility] ([facility]) [address] [place], [address], 04/05/2024 03:36:12 04/02/20 24 04/04/2024 DRUG PROFI LE,UR ,9 DRUGS ,BUND oxazepam NEGATI VE cutoff =300 Not Available [facility] ([facility]) [address] [place], [address], 04/05/2024 03:36:12 04/02/20 24 04/04/2024 DRUG PROFI LE,UR ,9 DRUGS ,BUND oh-alprazola m POSITI VE abnormal Not Available [facility] ([facility]) [address] [place], [address], 04/05/2024 03:36:12 04/02/20 24 04/04/2024 DRUG PROFI LE,UR ,9 DRUGS ,BUND oh-alprazola m conf, MS, ur 709 NG/mL cutoff =300 Not Available [facility] ([facility]) [address] [place], [address], 04/05/2024 03:36:12 04/02/20 24 04/03/2024 CBC WITH DIFFE RENTI AL/PL ATELE T WBC 6.5 x10e3 /uL 3.4-10 .8 normal Not Available [facility] ([facility]) [address] [place], [address], 04/05/2024 03:36:13 04/02/20 24 04/03/2024 CBC WITH DIFFE RENTI AL/PL ATELE T RBC 4.16 x10e6 /uL 3.77-5 .28 normal Not Available [facility] ([facility]) [address] [place], [address], 04/05/2024 03:36:13 04/02/20 24 04/03/2024 CBC WITH DIFFE RENTI AL/PL ATELE T hemoglobin 13.2 g/dL 11.1-1 5.9 normal Not Available [facility] ([facility]) [address] [place], [address], 04/05/2024 03:36:13 04/02/20 24 04/03/2024 CBC WITH DIFFE RENTI AL/PL ATELE T hematocrit 40.9 % 34.0-4 6.6 normal Not Available [facility] ([facility]) [address] [facility], [place], [address], 04/05/2024 03:36:13 04/02/20 24 04/03/2024 CBC WITH DIFFE RENTI AL/PL ATELE T MCV 98 fL 79-97 above high normal Not Available [facility] ([facility]) [address] [facility], [place], [address], 04/05/2024 03:36:13 04/02/20 24 04/03/2024 CBC WITH DIFFE RENTI AL/PL ATELE T MCH 31.7 pg 26.6-3 3.0 normal Not Available [facility] ([facility]) [address] [facility], [place], [address], 04/05/2024 03:36:13 04/02/20 24 04/03/2024 CBC WITH DIFFE RENTI AL/PL ATELE T MCHC 32.3 g/dL 31.5-3 5.7 normal Not Available [facility] ([facility]) [address] [facility], [place], [address], 04/05/2024 03:36:13 04/02/20 24 04/03/2024 CBC WITH DIFFE RENTI AL/PL ATELE T RDW 12.3 % 11.7-1 5.4 Not Available [facility] ([facility]) [address] [place], [address], 04/05/2024 03:36:13 04/02/20 24 04/03/2024 CBC WITH DIFFE RENTI AL/PL ATELE T platelets 293 x10e3 /uL 150-45 0 normal Not Available [facility] ([facility]) [address] [facility], [place], [address], 04/05/2024 03:36:13 04/02/20 24 04/03/2024 CBC WITH DIFFE RENTI AL/PL ATELE T neutrophils 58 % not estab. normal Not Available [facility] ([facility]) [address] [facility], [place], [address], 04/05/2024 03:36:13 04/02/20 24 04/03/2024 CBC WITH DIFFE RENTI AL/PL ATELE T lymphs 33 % not estab. normal Not Available [facility] ([facility]) [address] [facility], [place], [address], 04/05/2024 03:36:13 04/02/20 24 04/03/2024 CBC WITH DIFFE RENTI AL/PL ATELE T monocytes 6 % not estab. normal Not Available [facility] ([facility]) [address] [facility], [place], [address], 04/05/2024 03:36:13 04/02/20 24 04/03/2024 CBC WITH DIFFE RENTI AL/PL ATELE T eos 2 % not estab. normal Not Available [facility] ([facility]) [address] [facility], [place], [address], 04/05/2024 03:36:13 04/02/20 24 04/03/2024 CBC WITH DIFFE RENTI AL/PL ATELE T basos 1 % not estab. normal Not Available [facility] ([facility]) [address] [facility], [place], [address], 04/05/2024 03:36:13 04/02/20 24 04/03/2024 CBC WITH DIFFE RENTI AL/PL ATELE T immature cells CHISEL TRIMMER Not Available [facility] ([facility]) [address] [facility], [place], [address], 04/05/2024 03:36:13 04/02/20 24 04/03/2024 CBC WITH DIFFE RENTI AL/PL ATELE T neutrophils (absolute) 3.8 x10e3 /uL 1.4-7. 0 normal Not Available [facility] ([facility]) [address] [facility], [place], [address], 04/05/2024 03:36:13 04/02/20 24 04/03/2024 CBC WITH DIFFE RENTI AL/PL ATELE T lymphs (absolute) 2.1 x10e3 /uL 0.7-3. 1 normal Not Available [facility] ([facility]) [address] [facility], [place], [address], 04/05/2024 03:36:13 04/02/20 24 04/03/2024 CBC WITH DIFFE RENTI AL/PL ATELE T monocytes(ab solute) 0.4 x10e3 /uL 0.1-0. 9 normal Not Available [facility] ([facility]) [address] [facility], [place], [address], 04/05/2024 03:36:13 04/02/20 24 04/03/2024 CBC WITH DIFFE RENTI AL/PL ATELE T eos (absolute) 0.1 x10e3 /uL 0.0-0. 4 normal Not Available [facility] ([facility]) [address] [facility], [place], [address], 04/05/2024 03:36:13 04/02/20 24 04/03/2024 CBC WITH DIFFE RENTI AL/PL ATELE T baso (absolute) 0.0 x10e3 /uL 0.0-0. 2 normal Not Available [facility] ([facility]) [address] [place], [address], 04/05/2024 03:36:13 04/02/20 24 04/03/2024 CBC WITH DIFFE RENTI AL/PL ATELE T immature granulocytes 0 % not estab. Not Available [facility] ([facility]) [address] [facility], [place], [address], 04/05/2024 03:36:13 04/02/20 24 04/03/2024 CBC WITH DIFFE RENTI AL/PL ATELE T immature grans (abs) 0.0 x10e3 /uL 0.0-0. 1 Not Available [facility] ([facility]) [address] [facility], [place], [address], 04/05/2024 03:36:13 04/02/20 24 04/03/2024 CBC WITH DIFFE RENTI AL/PL ATELE T NRBC CHISEL TRIMMER Not Available [facility] ([facility]) [address] [facility], [place], [address], 04/05/2024 03:36:13 04/02/20 24 04/03/2024 CBC WITH DIFFE RENTI AL/PL ATELE T hematology comments: CHISEL TRIMMER Not Available [facility] ([facility]) [address] [facility], [place], [address], 04/05/2024 03:36:13 04/02/20 24 04/03/2024 COMP. METAB OLIC PANEL (14) glucose 107 mg/dL 70-99 above high normal Not Available [facility] ([facility]) [address] [facility], [place], [address], 04/05/2024 03:36:14 04/02/20 24 04/03/2024 COMP. METAB OLIC PANEL (14) BUN 10 mg/dL 8-27 normal Not Available [facility] ([facility]) [address] [facility], [place], [address], 04/05/2024 03:36:14 04/02/20 24 04/03/2024 COMP. METAB OLIC PANEL (14) creatinine 0.70 mg/dL 0.57-1 .00 normal Not Available [facility] ([facility]) [address] [place], [address], 04/05/2024 03:36:14 04/02/20 24 04/03/2024 COMP. METAB OLIC PANEL (14) eGFR 95 mL/mi n/1.7 3 >59 normal Not Available [facility] ([facility]) [address] [place], [address], 04/05/2024 03:36:14 04/02/20 24 04/03/2024 COMP. METAB OLIC PANEL (14) BUN/creatini ne ratio 14 12-28 normal Not Available [facility] ([facility]) [address] [place], [address], 04/05/2024 03:36:14 04/02/20 24 04/03/2024 COMP. METAB OLIC PANEL (14) sodium 142 mmol/ L 134-14 4 normal Not Available [facility] ([facility]) [address] [place], [address], 04/05/2024 03:36:14 04/02/20 24 04/03/2024 COMP. METAB OLIC PANEL (14) potassium 4.0 mmol/ L 3.5-5. 2 normal Not Available [facility] ([facility]) [address] [place], [address], 04/05/2024 03:36:14 04/02/20 24 04/03/2024 COMP. METAB OLIC PANEL (14) chloride 106 mmol/ L 96-106 normal Not Available [facility] ([facility]) [address] [place], [address], 04/05/2024 03:36:14 04/02/20 24 04/03/2024 COMP. METAB OLIC PANEL (14) carbon dioxide, total 21 mmol/ L 20-29 normal Not Available [facility] ([facility]) [address] [place], [address], 04/05/2024 03:36:14 04/02/20 24 04/03/2024 COMP. METAB OLIC PANEL (14) calcium 9.2 mg/dL 8.7-10 .3 normal Not Available [facility] ([facility]) [address] [place], [address], 04/05/2024 03:36:14 04/02/20 24 04/03/2024 COMP. METAB OLIC PANEL (14) protein, total 6.8 g/dL 6.0-8. 5 normal Not Available [facility] ([facility]) [address] [place], [address], 04/05/2024 03:36:14 04/02/20 24 04/03/2024 COMP. METAB OLIC PANEL (14) albumin 4.4 g/dL 3.9-4. 9 normal Not Available [facility] ([facility]) [address] [place], [address], 04/05/2024 03:36:14 04/02/20 24 04/03/2024 COMP. METAB OLIC PANEL (14) globulin, total 2.4 g/dL 1.5-4. 5 Not Available [facility] ([facility]) [address] [place], [address], 04/05/2024 03:36:14 04/02/20 24 04/03/2024 COMP. METAB OLIC PANEL (14) bilirubin, total 0.5 mg/dL 0.0-1. 2 normal Not Available [facility] ([facility]) [address], [place], [address], 04/05/2024 03:36:14 04/02/20 24 04/03/2024 COMP. METAB OLIC PANEL (14) alkaline phosphatase 101 IU/L 44-121 normal Not Available [facility] ([facility]) [address] [place], [address], 04/05/2024 03:36:14 04/02/20 24 04/03/2024 COMP. METAB OLIC PANEL (14) AST (SGOT) 14 IU/L 0-40 normal Not Available [facility] ([facility]) [address] [place], [address], 04/05/2024 03:36:14 04/02/20 24 04/03/2024 COMP. METAB OLIC PANEL (14) ALT (SGPT) 15 IU/L 0-32 normal Not Available [facility] ([facility]) [address] [place], [address], 04/05/2024 03:36:14 04/02/20 24 04/02/2024 LP+LD L DIREC T LDL calc comment: COMMEN T See LDL Comme nt if repor eder. Not Available [facility] ([facility]) [address] [place], [address], 04/05/2024 03:36:14 04/02/20 24 04/03/2024 LP+LD L DIREC T cholesterol, total 176 mg/dL 100-19 9 normal Not Available [facility] ([facility]) [address] [place], [address], 04/05/2024 03:36:14 04/02/20 24 04/03/2024 LP+LD L DIREC T triglyceride s 96 mg/dL 0-149 normal Not Available [facility] ([facility]) [address] [place], [address], 04/05/2024 03:36:14 04/02/20 24 04/03/2024 LP+LD L DIREC T HDL cholesterol 44 mg/dL >39 normal Not Available [facility] ([facility]) [address] [place], [address], 04/05/2024 03:36:14 04/02/20 24 04/03/2024 LP+LD L DIREC T VLDL cholesterol marcio 18 mg/dL 5-40 Not Available [facility] ([facility]) [address] [place], [address], 04/05/2024 03:36:14 04/02/20 24 04/03/2024 LP+LD L DIREC T LDL chol calc (nih) 114 mg/dL 0-99 above high normal Not Available [facility] ([facility]) [address] [facility], [place], [address], 04/05/2024 03:36:14 04/02/20 24 04/03/2024 LP+LD L DIREC T LDL chol. (direct) 115 mg/dL 0-99 above high normal Not Available [facility] ([facility]) [address] [facility], [place], [address], 04/05/2024 03:36:14 04/02/20 24 04/03/2024 LP+LD L DIREC T LDL direct comment: CHISEL TRIMMER Not Available [facility] ([facility]) [address] [facility], [place], [address], 04/05/2024 03:36:14 04/02/20 24 04/03/2024 HEMOG LOBIN A1C hemoglobin A1C 5.4 % 4.8-5. 6 normal Predi abete s: 5.7 - 6.4 Diabe danny: >6.4 Glyce suha contr ol for adult s with diabe danny: <7.0 Not Available [facility] ([facility]) [address] [facility], [place], [address], 04/05/2024 03:36:15 04/02/20 24 04/03/2024 C-PEP TIDE, SERUM C-peptide, serum 4.1 NG/mL 1.1-4. 4 C-Pep tide refer ence inter katlyn is for fasti ng patie nts. Not Available [facility] ([facility]) [address] [facility], [place], [address], 04/05/2024 03:36:15 04/02/20 24 04/03/2024 HCV ANTIB ALYSSA hep C virus Ab NON REACTI VE non reacti ve HCV antib alyssa alone does not diffe renti ate betwe en previ ously resol jose infec tion and activ e infec tion. Equiv ocal and React tutu HCV antib alyssa resul ts shoul d be follo wed up with an HCV RNA test to suppo rt the diagn osis of activ e HCV infec tion. Not Available [facility] ([facility]) [address] [facility], [place], [address], 04/05/2024 03:36:16 06/19/20 24 06/20/2024 COMP. METAB OLIC PANEL (14) glucose 106 mg/dL 70-99 above high normal Not Available [facility] ([facility]) [address] [facility], [place], [address], 06/20/2024 04:36:32 06/19/2006/20/2024 COMP. METAB OLIC PANEL (14) BUN 11 mg/dL 8-27 normal Not Available [facility] ([facility]) [address] [facility], [place], [address], 06/20/2024 04:36:32 06/19/20 24 06/20/2024 COMP. METAB OLIC PANEL (14) creatinine 0.79 mg/dL 0.57-1 .00 normal Not Available [facility] ([facility]) [address] [place], [address], 06/20/2024 04:36:32 06/19/20 24 06/20/2024 COMP. METAB OLIC PANEL (14) eGFR 82 mL/mi n/1.7 3 >59 normal Not Available [facility] ([facility]) [address] [place], [address], 06/20/2024 04:36:32 06/19/20 24 06/20/2024 COMP. METAB OLIC PANEL (14) BUN/creatini ne ratio 14 12-28 normal Not Available [facility] ([facility]) [address] [place], [address], 06/20/2024 04:36:32 06/19/20 24 06/20/2024 COMP. METAB OLIC PANEL (14) sodium 142 mmol/ L 134-14 4 normal Not Available [facility] ([facility]) [address] [place], [address], 06/20/2024 04:36:32 06/19/20 24 06/20/2024 COMP. METAB OLIC PANEL (14) potassium 4.4 mmol/ L 3.5-5. 2 normal Not Available [facility] ([facility]) [address] [place], [address], 06/20/2024 04:36:32 06/19/20 24 06/20/2024 COMP. METAB OLIC PANEL (14) chloride 105 mmol/ L 96-106 normal Not Available [facility] ([facility]) [address] [place], [address], 06/20/2024 04:36:32 06/19/20 24 06/20/2024 COMP. METAB OLIC PANEL (14) carbon dioxide, total 24 mmol/ L 20-29 normal Not Available [facility] ([facility]) [address] [place], [address], 06/20/2024 04:36:32 06/19/20 24 06/20/2024 COMP. METAB OLIC PANEL (14) calcium 9.5 mg/dL 8.7-10 .3 normal Not Available [facility] ([facility]) [address] [place], [address], 06/20/2024 04:36:32 06/19/20 24 06/20/2024 COMP. METAB OLIC PANEL (14) protein, total 7.0 g/dL 6.0-8. 5 normal Not Available [facility] ([facility]) [address] [place], [address], 06/20/2024 04:36:32 06/19/20 24 06/20/2024 COMP. METAB OLIC PANEL (14) albumin 4.4 g/dL 3.9-4. 9 normal Not Available [facility] ([facility]) [address] [facility], [place], [address], 06/20/2024 04:36:32 06/19/20 24 06/20/2024 COMP. METAB OLIC PANEL (14) globulin, total 2.6 g/dL 1.5-4. 5 Not Available [facility] ([facility]) [address] [facility], [place], [address], 06/20/2024 04:36:32 06/19/20 24 06/20/2024 COMP. METAB OLIC PANEL (14) bilirubin, total 0.5 mg/dL 0.0-1. 2 normal Not Available [facility] ([facility]) [address] [place], [address], 06/20/2024 04:36:32 06/19/20 24 06/20/2024 COMP. METAB OLIC PANEL (14) alkaline phosphatase 106 IU/L 44-121 normal Not Available [facility] ([facility]) [address] [facility], [place], [address], 06/20/2024 04:36:32 06/19/20 24 06/20/2024 COMP. METAB OLIC PANEL (14) AST (SGOT) 18 IU/L 0-40 normal Not Available [facility] ([facility]) [address] [facility], [place], [address], 06/20/2024 04:36:32 06/19/20 24 06/20/2024 COMP. METAB OLIC PANEL (14) ALT (SGPT) 23 IU/L 0-32 normal Not Available [facility] ([facility]) [address] [facility], [place], [address], 06/20/2024 04:36:32 06/19/20 24 06/19/2024 LP+LD L DIREC T LDL calc comment: Commen t See LDL Comme nt if repor eder. Not Available [facility] ([facility]) [address] [place], [address], 06/20/2024 04:36:34 06/19/20 24 06/20/2024 LP+LD L DIREC T cholesterol, total 185 mg/dL 100-19 9 normal Not Available [facility] ([facility]) [address] [place], [address], 06/20/2024 04:36:34 06/19/2006/20/2024 LP+LD L DIREC T triglyceride s 109 mg/dL 0-149 normal Not Available [facility] ([facility]) [address] [place], [address], 06/20/2024 04:36:34 06/19/2006/20/2024 LP+LD L DIREC T HDL cholesterol 45 mg/dL >39 normal Not Available [facility] ([facility]) [address] [place], [address], 06/20/2024 04:36:34 06/19/20 24 06/20/2024 LP+LD L DIREC T VLDL cholesterol marcio 20 mg/dL 5-40 Not Available [facility] ([facility]) [address] [place], [address], 06/20/2024 04:36:34 06/19/20 24 06/20/2024 LP+LD L DIREC T LDL chol calc (nih) 120 mg/dL 0-99 above high normal Not Available [facility] ([facility]) [address] [place], [address], 06/20/2024 04:36:34 06/19/20 24 06/20/2024 LP+LD L DIREC T LDL chol. (direct) 118 mg/dL 0-99 above high normal Not Available [facility] ([facility]) [address] [place], [address], 06/20/2024 04:36:34 06/19/20 24 06/20/2024 LP+LD L DIREC T LDL direct comment: CHISEL TRIMMER Not Available [facility] ([facility]) [address], [place], [address], 06/20/2024 04:36:34 03/30/20 24 03/30/2024 elect rocar diogr am No observ ation record ed. [facility], [facility] [address], [place], [address], 06/12/2024 15:44:56 03/30/20 24 03/30/2024 ced metry testi ng* No observ ation record ed. [facility] [address], [place], [address], 06/12/2024 15:44:57 03/30/20 24 03/30/2024 elect rocar diogr am No observ ation record ed. [facility] [address], [place], [address], 06/12/2024 15:44:56 04/04/20 ced metry testi ng* No observ ation record ed. [facility], [facility] [address], [place], [address], 06/12/2024 15:44:56 06/20/20 24 06/19/2024 XR, lumba r spine No observ ation record ed. [facility] [address], [place], [address], 06/20/2024 13:08:14 06/28/20 24 06/19/2024 XR, lumba r spine No observ ation record ed. [facility] [address], [place], [address], 06/29/2024 13:15:25 06/28/20 24 06/19/2024 XR, chest , 2 view No observ ation record ed. [facility] [address], [place], [address], 06/29/2024 13:15:25 06/28/20 24 06/19/2024 US, abdom inal aorta No observ ation record ed. [facility] [address], [place], [address], 06/29/2024 13:15:25 Result Notes None recorded. Problems Name Problem SNOMED Code Status Onset Date Resolution Date Notes Provider Name and Address Organization Details Recorded Time Tattoo of skin 436086278211 Active 2023 Mignon Marie MD [address], [place], [address], [facility] 12:47:11 Family history of diabetes mellitus 533998826 Active 2023 Mignon Marie MD [address], [place], [address], [facility] 12:49:22 Family history of breast cancer 554649389 Active 2023 Mignon Marie MD [address], [place], [address], [facility] 12:49:24 Gastroesoph ageal reflux disease without esophagitis 497011900 Active 2023 Mignon Marie MD [address], [place], [address], [facility] 4 12:49:27 Ex-smoker 4656877 Active 2023 Mignon Marie MD [address], [place], [address], [facility] 4 12:49:35 Menopause Active 2023 Mignon Marie MD [address], [place], [address], [facility] 4 12:49:38 Major depressive disorder 793116693 Active 2023 Mignon Marie MD [address], [place], [address], [facility] 12:49:43 Chronic insomnia 175590837 Active 2023 Mignon Marie MD [address], [place], [address], [facility] 12:49:45 Dizziness 167946934 Active 2023 Mignon Marie MD [address], [place], [address], [facility] 12:49:48 Long-term drug therapy Active 2023 Mignon Marie MD [address], [place], [address], [facility] 12:51:01 Mixed hyperlipide pk 986024158 Active 2023 Mignon Marie MD [address], [place], [address], [facility] 15:40:36 Snoring 32110022 Active 2023 Mignon Marie MD [address], [place], [address], [facility] 15:49:08 Problem Notes None recorded. Procedures Surgical History None recorded. Imaging Results Imaging Date Name Status LastModified by Organization Details LastModified Time 03/30/2024 [facility]cardiogram [facility] [employer], [employer] [address], [place], [address], 06/12/2024 15:44:56 03/30/2024 spirometry testing* [facility] [employer], [employer] [address], [place], [address], 06/12/2024 15:44:57 03/30/2024 electrocardiogram completed [facility], [facility] [address], [place], [address], 06/12/2024 15:44:56 04/04/2024 spirometry testing* completed [facility], [facility] [address], [place], [address], 06/12/2024 15:44:56 06/19/2024 XR, lumbar spine active [facility] [address], [place], [address], 06/20/2024 13:08:14 06/19/2024 XR, lumbar spine completed [facility] [address], [place], [address], 06/29/2024 13:15:25 06/19/2024 XR, chest, 2 view completed [facility] [address], [place], [address], 06/29/2024 13:15:25 06/19/2024 US, abdominal aorta completed [facility] [address], [place], [address], 06/29/2024 13:15:25 Procedure Notes None recorded. Medical Equipment None Reported. Allergies Allergen ID Allergen Name Allergen Category Reaction Reaction Severity Criticality Documentation Date Start Date Code Code System Note Provider Name and Address Organization Details Recorded Time 82638 codeine medicatio n nausea moderate low 03/30/2024 2670 RxNorm Mignon Marie MD [address], [place], [address], [place] [facility] 12:26:12 Medications Name Sig Start Date Stop Date Status Note LastModified by Organization Details LastModified Time celecoxib 200 mg capsule TAKE 1 CAPSULE BY MOUTH TWICE DAILY 03/30 completed Not Available Not Available Not Available tizanidine 2 mg tablet TAKE 1 TABLET BY MOUTH THREE TIMES DAILY NEEDED FOR MUSCLE SPASMS 03/30 completed Not Available Not Available Not Available alprazolam 1 mg tablet TAKE 2 TABLETS BY MOUTH EVERY DAY active Not Available Not Available No t Available omeprazole 20 mg capsule,del ayed release TAKE 1 CAPSULE BY MOUTH EVERY DAY IN THE MORNING active Not Available Not Available No t Available diclofenac sodium 75 mg tablet,cruz yed release TAKE 1 TABLET BY MOUTH TWICE DAILY 03/30 completed Not Available Not Available Not Available ergocalcife rol (vitamin D2) 1,250 mcg (50,000 unit) capsule TAKE 1 CAPSULE BY MOUTH EVERY WEEK 03/30 completed Not Available Not Available Not Available methylpredn isolone 4 mg tablets in a dose pack FOLLOW PACKAGE DIRECTION S active Not Available Not Available No t Available albuterol sulfate HFA 90 mcg/actuati on aerosol inhaler INHALE 2 PUFFS BY MOUTH EVERY 8 HOURS NEEDED active Not Available Not Available No t Available ipratropium bromide 42 mcg (0.06 %) nasal spray USE 2 SPRAYS IN EACH NOSTRIL TWICE DAILY active Not Available Not Available No t Available fluoxetine 20 mg capsule TAKE 1 CAPSULE BY MOUTH EVERY DAY active Not Available Not Available No t Available fluticasone propionate 50 mcg/actuati on nasal spray,suspe nsion active Not Available Not Available Not Available bupropion HCl XL 150 mg 24 hr tablet, extended release TAKE 1 TABLET BY MOUTH EVERY DAY IN THE MORNING active Not Available Not Available No t Available nitrofurant oin monohydrate /macrocryst als 100 mg capsule TAKE ONE CAPSULE BY MOUTH WITH FOOD TWICE DAILY 06/12 completed Not Available Not Available Not Available eszopiclone 3 mg tablet TAKE ONE TABLET BY MOUTH EVERY EVENING active Not Available Not Available No t Available eszopiclone 2 mg tablet Take 1 tablet every day by oral route at bedtime. 2023 active Not Available Not Available Not Avai lable Auvelity 45 mg-105 mg tablet, extended release Take 1 tablet twice a day by oral route. 06/12 completed Not Available Not Available Not Available Vitals Date Recorded Heart rate Body temperature Body height Body mass index (BMI) Body weight Systolic blood pressure Diastolic blood pressure Provider Name and Address Organization Details Last Updated DateTime 4 75 /min 97.6 [degF] 170.18 cm 33.8 kg/m2 43483.9 5 g 124 mm[Hg] 75 mm[Hg] Fabienne Ervinrett [facility] 12:13:48 Date Recorded Respiratory rate Provider Name a nd Address Organization Details Last Updated DateTime 03/30/2024 18 /min Mignon Marie MD [address], [place], [place], [address] [place] [address] 03/30/2024 12:33:29 Date Recorded Body height Respiratory rate Body mass index (BMI) Body weight Body temperature Provider Name and Address Organization Details Last Updated DateTime 06/12/2024 170.18 cm 18 /min 34.1 kg/m2 74175.1 4 g 97.6 [degF] Fabienne Ervinrett [facility] 15:19:02 Date Recorded Heart rate Systolic blood pressure Diastolic blood pressure Provider Name and Address Organization Details Last Updated DateTime 06/12/2024 84 /min 131 mm[Hg] 84 mm[Hg] Mignon Marie MD [address], [place], [place], [address] [place] [address] 06/12/2024 15:44:48 Social History Question Answer Notes LastModified by Organizat ion Details LastModified Time Tobacco Smoking Status Former Smoker qiut 1993 Mignon Marie MD [address], [place], [place], [address] [place] [address], [facility] 03/30/2024 12:48:47 Do You Have An Advance Directive? No Information not available 03/30/2024 What Is The Highest Grade Or Level Of School You Have Completed Or The Highest Degree You Have Received? [id number] Information not available 03/30/2024 Sex: Unknown Functional Status Question Answer Note LastModified by Organization D etails LastModified Time Are you able to care for yourself? Yes Information n ot available 03/30/2024 Mental Status None recorded. Family History Relationship Description Onset Age of this Age Resolved Age Notes LastModified by Organization Details LastModified Time Brother Diabetes mellitus 64 [email or web address] Not available 2023 12:47:39 Sister Malignant tumor of breast [email or web address] Not available 2023 12:48:03 Medical History No medical history recorded. Gynecological HistoryNo gynecological history recorded. Obstetrics History GPAL:G 0 P 0 0 0 0 Past Encounters Encounter ID Performer Location Encounter Start Date Encounter Closed Date Diagnosis/Indication Diagnosis SNOMED-CT Code Diagnosis ICD10 Code Diagnosis Note [id number] Mignon Marie MD [employer] [address] [place] [address] 03/30/2024 11:12:10 03/30/2024 13:28:15 Adult health examination 951981897 Z00.01 Dizziness 669752304 R42 Chronic insomnia 9746323 04 F51.04 decrease alprazolam to 1/2 for 1 week then 1/4 for 1 week , then stop Major depr essive disorder 552676763 F32.9 started 2014 Menopause 577685796 Z78. 0 Ex-smoker 1577962 Z87.89 1 education Family his tory of diabetes mellitus 585091473 Z83.3 Family his tory of breast cancer 093759397 Z80.3 order mammogram Gastroesop hageal reflux disease without esophagitis 769558683 K21.9 Screening mammography 24 957845 Z12.31 Screening for malignant neoplasm of cervix 831955673 Z12.4 Screening for malignant neoplasm of colon 852726436 Z12.11 Active or passive immunization 823196925 Z23 Advance di rective discussed with patient 254844307 Z71.89 education Tattoo of skin 647936218 1 02 L81.8 Long-term drug therapy 040893995 Z79.899 xanax and lunesta [id number] Mignon Marie MD [employer] [address] [place] [address] 06/12/2024 15:06:42 06/12/2024 16:05:47 Dizziness 467468369 R42 Chronic insomnia 0710301 04 F51.04 decrease alprazolam to 1/2 for 1 week then 1/4 for 1 week , then stop Major depr essive disorder 165787728 F32.9 started 2014down to 1 mg xanax qd Menopause 006194241 Z78. 0 Ex-smoker 8276144 Z87.89 1 education ,quit 1993 Family his tory of diabetes mellitus 963648711 Z83.3 last A1c 04/02/24 Tattoo of skin 158654295 1 02 L81.8 last hep -ve 04/02/24 Long-term drug therapy 433816365 Z79.899 xanax and stefa Family his tory of breast cancer 287328610 Z80.3 order mammogram Gastroesop hageal reflux disease without esophagitis 288521285 K21.9 Screening mammography 24 509055 Z12.31 Screening for malignant neoplasm of cervix 498620669 Z12.4 Screening for malignant neoplasm of colon 451692084 Z12.11 Active or passive immunization 857147327 Z23 Advance di rective discussed with patient 857584350 Z71.89 education Mixed hyperlipidemia 267 980196 E78.2 last LDL 04/02/24 ,on low cholestero l diet Lumbar radiculopathy 128 132623 M54.16 Lower abdominal pain 545 26143 R10.30 Cough 98406869 R05.9 Snoring 16985974 R06.83 Health Concerns Section Related Observation LastModified by Organization Detai ls LastModified Time None Recorded Concern Status LastModified by Organization Details LastModified Time None Recorded Advance Directives Directive N: Payers Encounter Date Sequence Insurance Name Policy Number Policy Hackett Covered Member ID Hackett Member ID Guarantor Name 03/30/2024 1 [facility] (MEDICARE REPLACEMENT/A DVANTAGE - PPO) [id number] Jessa Sullivan [id number] Jessa Sullivan 06/12/2024 1 [facility] (MEDICARE REPLACEMENT/A DVANTAGE - PPO) [id number] Jessa Sullivan [id number] Jessa Sullivan Notes Date Note Type Note Provider Name and Address Organization Details Recorded Time 03/30/2024 text/html Hypertension F/UReported bypatient.Medications: taking medications as directed; no side effects from medication Lifestyle:regular exercise; limiting/avoiding salt; compliant with low salt diet Associated Symptoms:no dizziness; no lightheadedness; no chest pain; no shortness of breath; no palpitations; no edema; no calf pain with exertion; no headacheMedicare Annual Wellness VisitReported bypatient.Diet and Nutrition:healthy diet Fracture Risk:no history of fractures; no recent explained fracture; no sudden unexplained fractures; no previous musculoskeletal injuries Physical Activity:recent increase in physical activity; good physical condition; discussed exercise habits Depression Risk:never feels sad, empty, or tearful; no loss of interest in activities; no significant changes in weight; no sleep disturbances or insomnia; no agitation; no loss of energy; no feelings of worthlessness or guilt; no thoughts of suicide; no history of depression; no history of mood disorders Orientation:no disorientation to time; no disorientation to date; no disorientation to place Concentration and Memory:no decreased concentrating ability; no memory lapses or loss; does not forget words Speech/Motor difficulties:no speech difficulties; no difficulty expressing formulated concepts; no difficulty with fine manipulative tasks; no difficulty writing/copying; no slowed reaction time; does not knock things over when trying to pick them up Hearing:no loss of hearing Vision:no vision problems Activities of Daily Living:able to bathe with limited or no assistance; able to contol urination and bowels; able to dress with limited or no assistance; able to feed self with limited or no assistance; able to get out of chair or bed with limited or no assistance; able to groom with limited or no assistance; able to toilet with limited or no assistance Instrumental Activities of Daily Living:able to do house work with limited or no assistance; able to grocery shop with limited or no assistance; able to manage medications with limited or no assistance; able to manage money with limited or no assistance; able to prepare meals with limited or no assistance; able to use the phone with limited or no assistance Falls Risk Assessment:no frequent falls while walking; no fall in the past year; no dizziness/vertigo Home Safety:use of seatbelts; no vision or hearing loss while driving Mignon Marie MD [address] [place] [address] [address], [place], [address], [facility] 03/30/2024 12:59:53 06/12/2024 text/html Hypertension F/UReported bypatient.Medications: taking medications as directed; no side effects from medication Lifestyle:regular exercise; limiting/avoiding salt; compliant with low salt diet Associated Symptoms:no dizziness; no lightheadedness; no chest pain; no shortness of breath; no palpitations; no edema; no calf pain with exertion; no headache pain inside Lt thigh , increased by standing , 10 days , No red flags ,cough , dry , 2 months ,snoring Mignon Marie MD [address] [facility] [address], [place], [address], [facility] 06/12/2024 15:49:21 OBGyn Episode No OBEpisode recorded.
--- OUTSIDE RECORDS SUMMARY | 2024-12-10 13:34 | XMS_ITS ---
Author Organization [facility] Address [address] [place] [address] Care Team Providers Care Supervisor Filtration Name Role Phone Mignon Marie MD Primary Care Provider Susie Pederson Unavailable [phone] Francois Franks Unavailable REASON FOR VISIT Patient billed $50.00 for missed appointment Medications Medication SIG (Take, Route, Frequency, Duration) Notes Start Date End Date Status Benadryl Allergy 25 MG 1 tablet at bedti me as needed Orally Once a day Active Xanax 1 MG 1 tablet Orally Twic e a day Active Lunesta 3 MG 1 tablet immediately before bedtime Orally Once a day Active Albuterol Sulfate HFA 108 (90 Base) MCG/ACT Inhalation Active Fluticasone Propionate 50 MCG/ACT 1 spray in each nostril Nasally Twice a day Active Ipratropium [place] 0.06 % 2 sprays in e ach nostril Nasally Twice a day for 30 days 08/07/2024 Active Nasal [place] N/A as directed intranasally 08/07/20 24 Active Cetirizine HCl 10 MG 1 tablet Orally Once a day Active Encounters Encounter Location Date Provider Diagnosis [facility] [address] [place] [address] 09/18/2024 Susie Chapman Plan Of Treatment Next Appt Details Follow Up: prn, Reason: Progress Notes * Law CAMPOSB:1955 ( 69 yo F)Acc No.[id number]:09/18/2024 Progress Notes Patient: Jessa FISHER Provider: EARL Woodson :1955 A ge:69 Y S ex:Female Date:09/18/2024 Address:[address] [place] [address] Pcp:Mignon Marie MD Subjective: * Chief Complaints: * P atient billed $50.00 for missed appointment * Medical History: * Surgical History: * Hospitalization/Major Diagno stic Procedure: * Medications: T akingBenadryl Allergy 25 MG Tablet 1 tablet at bedtime as needed Orally Once a day Xanax 1 MG Tablet 1 tablet Orally Twice a day Lunesta 3 MG Tablet 1 tablet immediately before bedtime Orally Once a day Albuterol Sulfate HFA 108 (90 Base) MCG/ACT Aerosol Solution Inhalation Fluticasone Propionate 50 MCG/ACT Suspension 1 spray in each nostril Nasally Twice a day Cetirizine HCl 10 MG Tablet 1 tablet Orally Once a day Ipratropium [place] 0.06 % Solution 2 sprays in each nostril Nasally Twice a day Nasal Washes N/A 1 quart of sterilized tap water or distilled water, 1 tsp NaCl, 1 pinch of baking soda as directed intranasally Taking Benadryl Allergy 25 MG Tablet 1 tablet at bedtime as needed Orally Once a day Taking Xanax 1 MG Tablet 1 tablet Orally Twice a day Taking Lunesta 3 MG Tablet 1 tablet immediately before bedtime Orally Once a day Taking Albuterol Sulfate HFA 108 (90 Base) MCG/ACT Aerosol Solution Inhalation Taking Fluticasone Propionate 50 MCG/ACT Suspension 1 spray in each nostril Nasally Twice a day Taking Cetirizine HCl 10 MG Tablet 1 tablet Orally Once a day Taking Ipratropium [place] 0.06 % Solution 2 sprays in each nostril Nasally Twice a day Taking Nasal [place]hes N/A 1 quart of sterilized tap water or distilled water, 1 tsp NaCl, 1 pinch of baking soda as directed intranasally Objective: * Vitals: Assessment: Plan: * Treatment: * Procedure Codes: 0 0002 No Show - Follow-up * Follow Up: p rn * Billing Information: * Visit Code: * Procedure Codes: 90804 No Show - Follow-up. * BURSEMENT LIAISON Sign off status: Completed true * Provider: EARL Woodson Date: 0 09/18/2024 Generated for Eloy bhatti/Scott/eTransmitting on: 0 12/10/2024 01:33 PM CDT History and Physical Notes * HPI (History of Present Illness) Category Sub-Category Detail Notes Category Not es *Introduction
--- OUTSIDE RECORDS SUMMARY | 2024-12-10 13:34 | XMS_ITS | Referral Summary ---
Author Organization [facility] Address [address] [place] [address] Care Team Providers Care Wood Furniture Assembler Name Role Phone Araseli Tai MD Primary Care Provider Allergies Active Allergy Reactions Criticality Noted Date Comments Codeine Vomiting Low 2018 Propoxyphene N-Acetaminophen Nausea And Vomiting Low 12/20/2005 Sumatriptan Succinate Other (See comments) Low 01/27 Makes BERRY worst and chest tightness Medications ondansetron ODT (ZOFRAN-ODT) 4 mg disintegrating tablet Dissolve 1 tablet for mild to moderate nausea or vomiting or 2 tablets for severe nausea or vomiting oral twice a day as needed. 15 tablet 05/14/20 18 Active Additional Information Patient not taking.Reported on 02/23/2023 famotidine (PEPCID) 40 mg tablet Take 1 tablet (40 mg total) by mouth nightly as needed for heartburn. 20 tablet 05/14/20 18 Active ALPRAZolam (XANAX) 1 mg tablet Take 2 tablets (2 mg total) by mouth daily 01/26/20 23 Active eszopiclone (LUNESTA) 3 mg tablet Take 1 tablet (3 mg total) by mouth nightly 02/02/20 23 Active Active Problems No known active problems Social History Tobacco Use Types Packs/Day Years Used Date Smoking Tobacco: Never Smokeless Tobacco: Never Tobacco Cessation:Counseling Given: No Alcohol Use Standard Drinks/Week Comments Yes 0 (1 standard drink = 0.6 oz pur e alcohol) occasionally Personal Safety Answer Date Recorded Getting School Help Needed Not on file 10/23 Comments Unknown Sex and Gender Information Value Date Recorded Sex Assigned at Not on file 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 Gender Identity Not on file Sexual Orientation Not on file Last Filed Vital Signs Vital Sign Reading Time Taken Comments Blood Pressure 126/66 2018 6:40 PM CDT Pulse 82 2018 6:40 PM CDT Temperature 36.4 C (97.6 F) 2018 4:15 PM CDT Respiratory Rate 14 2018 6:40 PM CDT Oxygen Saturation 100% 2018 6:40 PM CDT Inhaled Oxygen Concentration - - Weight 87.5 kg (193 lb) 2018 4:15 PM CDT Height 170.2 cm (5' 7 ) 2018 4:15 PM CDT Body Mass Index 30.23 2018 4:15 PM CDT Plan of Treatment Not on file Insurance [facility] MEDICARE ADVANTAGE [facility] MEDICARE ADVANTAGE Care Teams Wood Furniture Assembler Relationship Specialty Start Date End Date Araseli Tai MD [address] [facility] [address] [place] [address] PCP - General 05/14/18
--- OUTSIDE RECORDS SUMMARY | 2024-12-10 13:34 | XMS_ITS ---
Author Organization [facility] Address [address] [place] [address] Care Team Providers Care Packing Room Supervisor Name Role Phone Frank DAVIES, Mignon Primary Care Provider Susie Pederson [phone] Francois Franks Unavailable Unavailable REASON FOR VISIT Record Request Encounters Encounter Location Date Provider Diagnosis [facility] [address] [facility] [place] [address] 08/07/2024 Susie Chapman Plan Of Treatment No Information Progress Notes * Cuate CAMPOSaDOB:1955 ( 69 yo F)Acc No.[id number]:08/07/2024 Patient: Fede SANDOR Jessa :1955 A ge:69 Y S ex:Female Address:[address] [place], [address] * true * Date: Generated for Printi ng/Faxing/eTransmitting on: 0 12/10/2024 01:34 PM CDT
--- OUTSIDE RECORDS SUMMARY | 2024-12-10 13:34 | XMS_ITS | Clinical Summary ---
Author Organization [facility] Address [address] [place] [address] Care Team Providers Care Security Public Safety Officer Name Role Phone Araseli Tai MD Primary [...] Active Active Problems No known active problems Surgical History Surgery Date Site/Laterality Comments CARPAL TUNNEL RELEASE Medical History Medical History Date Comments Depression Insomnia Seasonal allergies Anxiety Family History * Patient is adopted Medical History Relation Name Comments Diabetes Brother Cataracts Father Cataracts Mother Relation Name Status Comments Brother Father Mother Social History Tobacco Use Types Packs/Day Years [...] on file 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 Gender Identity Not on file Sexual Orientation Not on file Obstetrics History Last Filed Vital Signs Vital Sign Reading [...] 2018 4:15 PM CDT Plan of Treatment Health Maintenance Due Date Last Done Comments Breast Cancer Screening-Mammogram 1955 Colon Cancer Screening-Colonoscopy 1955 Depression Screening 1955 Fall Risk Assessment 1955 Hepatitis C Screening 1955 Osteoporosis Screening-Bone Density Scan 1955 Hepatitis B Screening 1975 Pneumococcal vaccine 65+ (1 of 1 - PCV) 2007 Zoster Vaccine (1 of 2) 2007 DTaP/Tdap/Td Vaccine (2 - Td or Tdap) 04/22/2021 Well Visit 65+ 2022 Covid-19 Vaccine (3 - 2023- season) 04/29/202412/2021, 08/12/2021 Influenza Vaccine (#1) 2024 3, 06/10/2010, 06/07/2009 Insurance [facility] MEDICARE ADVANTAGE [facility] Address: [facility] [address] [place] [address] [facility] MEDICARE ADVANTAGE [facility] Address: [facility] [address] [place] [address] Care Teams Security Public Safety Officer Relationship Specialty Start Date End Date Araseli Tai MD [address] [facility] [address] [place] [address] PCP - General 05/14/18
--- OUTSIDE RECORDS SUMMARY | 2024-12-10 13:34 | XMS_ITS | Patient Health Record ---
Author Organization [facility] Address [address] [place] [address] Care Team Providers Care Chronometer Repairer Name Role Phone Frank DAVIES, Mignon Primary Care Provider Susie Pederson Unavailable [phone] Francois Franks Unavailable Unavailable Allergies No Known Allergies Results Component Value Reference Range Notes -Tryptase ([id number]) Reviewed date:08/16/2024 11:27:15 AM Interpretation:Normal Performing Lab:[facility] [address] [id number], Phone - [phone], Director - Page Notes/Report: Tryptase 6.0 2.2-13.2 ug/L -Respiratory Allergens w/Tot al IgE Area 8 Reviewed date:08/14/2024 09:25:49 PM Interpretation:Normal Performing Lab:[facility] [address] [id number], Phone - [phone], Director - Page Notes/Report: Class Description Levels of Specific IgE Class Description of Class ----- < 0.10 0 Negative 0.10 - 0.31 0/I Equivocal/Low 0.32 - 0.55 I Low 0.56 - 1.40 II Moderate 1.41 - 3.90 III High 3.91 - 19.00 IV Very High 19.01 - 100.00 V Very High >100.00 Very High Immunoglobulin E, Total 173 6-495 IU/mL P134-TuM D pteronyssinus <0.10 Class 0 kU/L A475-SnK D farinae <0.10 Class 0 kU/L K016-NgQ Cat Dander <0.10 Class 0 kU/L J588-InR Dog Dander <0.10 Class 0 kU/L B214-SdP Mouse Urine <0.10 Class 0 kU/L Z456-YzA Bermuda Grass <0.10 Class 0 kU/L F837-JnF Marvin Grass <0.10 Class 0 kU/L W523-IxT Cockroach, Afghan <0.10 Class 0 kU/L T164-ObP Penicillium chrysogen <0.10 Class 0 kU /L K992-JzZ Cladosporium herbarum <0.10 Class 0 kU /L O265-YcT Aspergillus fumigatus <0.10 Class 0 kU /L Q310-YoG Alternaria alternata <0.10 Class 0 kU/ L K824-BmR Maple/[place] <0.10 Class 0 kU/L J425-IkA [place], Mountain <0.10 Class 0 kU/L I795-MaB Berkey, White <0.10 Class 0 kU/L F599-PhB Elm, Senegalese <0.10 Class 0 kU/L W976-FkL [place] <0.10 Class 0 kU/L M575-KrJ Maple [place] <0.10 Class 0 kU/L Z215-DgX [place] <0.10 Class 0 kU/L T490-MaW Eron, White <0.10 Class 0 kU/L X233-HfE Pecan, [place] <0.10 Class 0 kU/L Z586-HyQ [place] <0.10 Class 0 kU/L O986-PkL Ragweed, Short <0.10 Class 0 kU/L R227-DsE Thistle, Nicaraguan <0.10 Class 0 kU/L N726-NmX Pigweed, Common <0.10 Class 0 kU/L Z360-LgV Rough Marshelder <0.10 Class 0 kU/L Reason For Referral No Information Medications Medication SIG (Take, Route, Frequency, Duration) Notes Start Date End Date Status Benadryl Allergy 25 MG 1 tablet at bedti me as needed Orally Once a day Active Xanax 1 MG 1 tablet Orally Twic e a day Active Ipratropium [place] 0.06 % 2 sprays in e ach nostril Nasally Twice a day for 30 days 08/07/2024 Active Nasal Washes N/A as directed intranasally 08/07/20 24 Active Lunesta 3 MG 1 tablet immediately before bedtime Orally Once a day Active Albuterol Sulfate HFA 108 (90 Base) MCG/ACT Inhalation Active Fluticasone Propionate 50 MCG/ACT 1 spray in each nostril Nasally Twice a day Active Cetirizine HCl 10 MG 1 tablet Orally Once a day Active Social History Tobacco Use: Social History Observation Description Date Details (start date - stop date) Former Smoker NA - NA Tobacco Control (Standard) Question Answer Notes Tobacco use: Former smoker Problems Problem Type SNOMED Code ICD Code Onset Dates Problem Status W/U Status Risk Notes Problem Allergy to penicillin (25208709) Allergy status to penicillin (Z88.0) Active confirmed Problem Anxiety disorder (064424307) Anxiety disorder, unspecified (F41.9) Active confirmed Problem Chronic allergic conjunctivitis (70168645) Other chronic allergic conjunctivitis (H10.45) Active confirmed Problem Allergic rhinitis caused by pollen (disorder) (45221024) Allergic rhinitis due to pollen (J30.1) Active confirmed Problem Allergic rhinitis (23559977) Other allergic rhinitis (J30.89) Active confirmed Problem Hypertrophy of nasal turbinates (27579051) Hypertrophy of nasal turbinates (J34.3) Active confirmed Problem Elevated blood pressure reading without diagnosis of hypertension (686140207) Elevated blood-pressure reading, without diagnosis of hypertension (R03.0) Active confirmed Problem Sneezing (17093894) Sneezing (R06.7) Active confirmed Problem Cough (finding) (77822177) Cough, unspecified (R05.9) Active confirmed Vital Signs Oximetry 98 % 08/07/2024 Blood pressure diastolic 84 mm Hg 08/07/2024 Height 67 in 08/07/2024 Blood pressure systolic 134 mm Hg 08/07/2024 Weight 219.6 lbs 08/07/2024 BMI 34.39 kg/m2 08/07/2024 Encounters Encounter Location Date Provider Diagnosis [facility] [address] [address] 08/07/2024 Susie Chapman Allergic rhinitis du e to pollen J30.1 ; Other allergic rhinitis J30.89 ; Other chronic allergic conjunctivitis H10.45 ; Hypertrophy of nasal turbinates J34.3 ; Sneezing R06.7 ; Cough, unspecified R05.9 ; Allergy status to penicillin Z88.0 and Elevated blood-pressure reading, without diagnosis of hypertension R03.0 [facility] [address] [place] [address] 09/18/2024 Susie Chapman [address] [address] 08/02/2024 Susie Chapman [address] [address] 08/07/2024 Susie Chapman Assessments Encounter Date Diagnosis (ICD Code) Assessment [...] is agreeable to ImmunoCaps. Order sent to [facility]. - Discuss SCIT in further detail next [...] with PCP 08/07/2024 Other Plan Of Treatment No Information Insurance Providers Payer Name Payer Address Payer Phone Subscriber Number Group Number Insured Name Patient Relationship to Insured Coverage Start Date Coverage End Date U[employer] Medicare [address] [address] [place] [address] [id number] Jessa Sullivan Self - patient is the insured 4 Medical (General) History Medical History History ICD Code Anxiety disorder, unspecified F41.9
== END 2024-12-10 12:20 | disposition home or self-care (01) ==
LOC: ANHIMG 12:21
PROVIDERS: PCP Family Medicine; Visit Provider Internal Medicine
DX: Z78.0 Asymptomatic menopausal state (principal)
CPT/HCPCS: 77080

== ENCOUNTER 2025-05-08 08:53 | Emergency (ER) | payer MEDICARE, SELFPAY ==
[2025-05-08] VITALS (7 sets, daily range): BP systolic 141–153; BP diastolic 77–95; PULSE 106–113; RESP 16–20; TEMP 36.6–38.8; O2SAT 94–99
--- NOTE | ~2025-05-08 | XR_ITS ---
EXAMINATION: XR chest 2V 05/08/2025 11:45 INDICATION: URI TECHNIQUE:Frontal and lateral images of the chest were obtained. COMPARISON: 06/19/2024 FINDINGS: The lungs are clear. The cardiomediastinal silhouette is within normal limits. There are no pleural effusions. There is no pneumothorax suspected. IMPRESSION: 1: NO ACUTE CARDIOPULMONARY DISEASE. Reviewed, dictated and finalized at location Q.
--- OUTSIDE RECORDS SUMMARY | 2025-05-08 09:26 | XMS_ITS | Clinical Summary ---
Author Organization [facility] Address [address] [place] [address] Care Team Providers Care Orthopedic Nurse Name Role Phone Natty Marie MD Primary Care Provider [phone] Encounters Date Type Department Care Team Description 04/01/2025 1:19 PM CDT - 04/01/2025 11:59 PM CDT Hospital Encounter [facility] [address] [place] [address] Natty Marie MD Discharge Disposition: Home or Self Care (Routine Discharge) 04/01/2025 Travel from Last 3 Months Social History Tobacco Use Types Packs/Day Years Used Date Smoking Tobacco: Never Assessed Comments Unknown Sex and Gender Information Value Date Recorded Sex Assigned at Female 04/01/2025 1:08 PM CDT Legal Sex Female 5:09 PM CDT Gender Identity Not on file Sexual Orientation Not on file Plan of Treatment Upcoming Encounters Date Type Department Care Team (Late st Contact Info) Description 08/01/2025 2:20 PM TECHNOLOGY SUPPORT ANALYST Office Visit [facility] [place] [id number] [facility] [address] [place] [address] Tyson Wang MD [address] [place] [address] Health Maintenance Due Date Last Done Comments Colorectal Cancer Screening Colonoscopy (10 Years) 1957 Hepatitis C 1975 DTaP, Tdap and Td Vaccines ( 1 - Tdap) 1976 Mammogram Screening 1997 Pneumococcal Vaccine: 50+ Years (1 of 1 - PCV) 2007 Zoster Vaccines (1 of 2) 2007 Annual Medicare Wellness Visit 2022 Dexa Scan (General) 2022 COVID-19 Vaccine (3 - 2024-2 6 season) 2025 09/02/2021, 08/12/2021 RSV Immunization or 60+ Years (1 - 1-dose 75+ series) 2032 Meningococcal B Vaccine Aged Out No l onger eligible based on patient's age to complete this topic Meningococcal Vaccine Aged Out No alirio david eligible based on patient's age to complete this topic RSV Immunizations Under 20 Months Aged Out No longer eligible b ased on patient's age to complete this topic Procedures Procedure Name Priority Date/Time Associated Diagnosis Comments MRI BRAIN WO CON Routine 04/01/2025 2:14 PM CDT Mild memory disturbance Other amnesia from Last 3 Months Results * MRI BRAIN WO CON (04/01/2025 2:14 PM CDT) Anatomical Region Laterality Modality Head Magnetic Resonan ce 04/02/2025 2:36 PM CDT Impressions 04/02/2025 2:40 PM CDT IMPRESSION: 1. No evidence of acute infarct or intracranial mass lesion. 2. Mild chronic senescent changes. 3. Opacification of right-sided mastoid air cells. Referred By: NATTY MARIE Interpreted By: Gurpreet Castillo MD, 04/02/2025 2:36 PM Narrative 04/02/2025 2:[address] PM [address]T [address] [place] [address] INDICATION: Dizziness, tinnitus, memory loss EXAMINATION: MRI of the brain without contrast. TECHNIQUE: Multisequence multiplanar unenhanced imaging. DATE/TIME: 04/01/2025 1:57 PM COMPARISON: None. FINDINGS: There is no evidence of restricted diffusion or acute infarct. There is no evidence of intracranial mass lesion, mass effect, or midline shift. There are a few tiny scattered bilateral foci of periventricular and deep white matter T2 and FLAIR hyperintensity, likely due to chronic small vessel ischemic disease. There is minimal volume loss with enlargement of the ventricles and hemispheric sulci. The proximal portions of the major intracranial arterial flow voids are grossly patent. No abnormal extra-axial collections identified. Gradient images reveal no evidence of hemorrhage. The craniocervical junction, sellar content, and pineal region appear unremarkable. There is opacification of a few right-sided mastoid air cells. Mastoid air cells, paranasal sinuses, and images of the orbits are otherwise unremarkable. Procedure Note Gurpreet Castillo MD - 04/02/[address] [address] INDICATION: Dizziness, tinnitus, memory loss EXAMINATION: MRI of the brain without contrast. TECHNIQUE: Multisequence multiplanar unenhanced imaging. DATE/TIME: 04/01/2025 1:57 PM COMPARISON: None. FINDINGS: There is no evidence of restricted diffusion or acute infarct. There is noevidence of intracranial mass lesion, mass effect, or midline shift. Thereare a few tiny scattered bilateral foci of periventricular and deep whitematter T2 and FLAIR hyperintensity, likely due to chronic small vesselischemic disease. There is minimal volume loss with enlargement of theventricles and hemispheric sulci. The proximal portions of the majorintracranial arterial flow voids are grossly patent. No abnormalextra-axial collections identified. Gradient images reveal no evidence ofhemorrhage. The craniocervical junction, sellar content, and pineal regionappear unremarkable. There is opacification of a few right-sided mastoidair cells. Mastoid air cells, paranasal sinuses, and images of the orbitsare otherwise unremarkable. IMPRESSION: 1. No evidence of acute infarct or intracranial mass lesion. 2. Mild chronic senescent changes. 3. Opacification of right-sided mastoid air cells. Referred By: NATTY MARIE Interpreted By: Gurpreet Castillo MD, 04/02/2025 2:36 PM Natty Marie MD MRI Final Result from Last 3 Months Insurance [facility] Care Teams Orthopedic Nurse Relationship Specialty Start Date End Date Natty Marie MD [address] [facility] [address] [place] [address] PCP - General INTERNAL MEDICINE 04/01/25
--- OUTSIDE RECORDS SUMMARY | 2025-05-08 09:26 | XMS_ITS | Patient Health Record ---
Author Organization [facility] [employer] [place] ([address]) Address [address] [place] [address] Care Team Providers Care Test Automation Architect Name Role Phone Mignon Marie MD Primary Care Provider Susie Pederson Unavailable [phone] Francois Franks Unavailable Unavailable Allergies No Known Allergies Results Component Value Reference Range Notes -Tryptase ([id number]) Reviewed date:08/16/2024 11:27:15 AM Interpretation:Normal Performing Lab:[facility] [address] [id number], Phone - [phone], Director - Page Notes/Report: Tryptase 6.0 2.2-13.2 ug/L -Respiratory Allergens w/Tot al IgE Area 8 Reviewed date:08/14/2024 09:25:49 PM Interpretation:Normal Performing Lab:[facility] [address] [id number], Phone - [phone], Director - Page Notes/Report: Class Description Levels of Specific IgE Class Description of Class ----- < 0.10 0 Negative 0.10 - 0.31 0/I Equivocal/Low 0.32 - 0.55 I Low 0.56 - 1.40 II Moderate 1.41 - 3.90 III High 3.91 - 19.00 IV Very High 19.01 - 100.00 V Very High >100.00 Very High Immunoglobulin E, Total 173 6-495 IU/mL Y885-ChC D pteronyssinus <0.10 Class 0 kU/L M173-TuG D farinae <0.10 Class 0 kU/L G056-LiE Cat Dander <0.10 Class 0 kU/L U722-UwN Dog Dander <0.10 Class 0 kU/L N204-GuO Mouse Urine <0.10 Class 0 kU/L Z826-TrP Bermuda Grass <0.10 Class 0 kU/L G963-RiM Marvin Grass <0.10 Class 0 kU/L E733-CkT Cockroach, Bhutanese <0.10 Class 0 kU/L V138-HfM Penicillium chrysogen <0.10 Class 0 kU /L Q754-QrM Cladosporium herbarum <0.10 Class 0 kU /L K493-TdY Aspergillus fumigatus <0.10 Class 0 kU /L T607-OcW Alternaria alternata <0.10 Class 0 kU/ L J419-PrP Maple/[place] <0.10 Class 0 kU/L Y842-NdR [place], Mountain <0.10 Class 0 kU/L J346-RpL [place], White <0.10 Class 0 kU/L I808-UoN Elm, Trinidadian <0.10 Class 0 kU/L T966-LpC [place] <0.10 Class 0 kU/L B225-SsW Maple [place] <0.10 Class 0 kU/L F996-KkJ [place] <0.10 Class 0 kU/L L789-OuP Eron, White <0.10 Class 0 kU/L U692-IwW Pecan, [place] <0.10 Class 0 kU/L X210-FoN White [place] Pos <0.10 Class 0 kU/L U514-FzK Ragweed, Short <0.10 Class 0 kU/L I988-DcE Thistle, Liberian <0.10 Class 0 kU/L W313-CbH Pigweed, Common <0.10 Class 0 kU/L E424-PqK Rough Marshelder <0.10 Class 0 kU/L Reason For Referral No Information Medications Medication SIG (Take, Route, Frequency, Duration) Notes Start Date End Date Status Benadryl Allergy 25 MG 1 tablet at bedti me as needed Orally Once a day Active Xanax 1 MG 1 tablet Orally Twic e a day Active Ipratropium [place] 0.06 % 2 sprays in e ach nostril Nasally Twice a day; Duration: 30 days 08/07/2024 Active Nasal Washes N/A [...] Status Risk Notes Problem Allergy to penicillin (84862116) Allergy status to penicillin (Z88.0) Active confirmed Problem Anxiety disorder (464910908) Anxiety disorder, unspecified (F41.9) Active confirmed Problem Chronic allergic conjunctivitis (44238008) Other chronic allergic conjunctivitis (H10.45) Active confirmed Problem Allergic rhinitis caused by pollen (disorder) (96684016) Allergic rhinitis due to pollen (J30.1) Active confirmed Problem Allergic rhinitis (00863905) Other allergic rhinitis (J30.89) Active confirmed Problem Hypertrophy of nasal turbinates (31802661) Hypertrophy of nasal turbinates (J34.3) Active confirmed Problem Elevated blood pressure reading without diagnosis of hypertension (529846644) Elevated blood-pressure reading, without diagnosis of hypertension (R03.0) Active confirmed Problem Sneezing (73028004) Sneezing (R06.7) Active confirmed Problem Cough (finding) (93294929) Cough, unspecified (R05.9) Active confirmed Vital Signs Blood pressure diastolic 84 mm Hg 08/07/2024 Oximetry 98 % 08/07/2024 Height 67 in 08/07/2024 Blood pressure systolic 134 mm Hg 08/07/2024 Weight 219.6 lbs 08/07/2024 BMI 34.39 kg/m2 08/07/2024 Encounters Encounter Location Date Provider Diagnosis [facility] [address] [place] [address] 09/18/2024 Susie Chapman [address] [address] 08/07/2024 Susie hCapman Allergic rhinitis du e to pollen J30.1 ; Other allergic rhinitis J30.89 ; Other chronic allergic conjunctivitis H10.45 ; Hypertrophy of nasal turbinates J34.3 ; Sneezing R06.7 ; Cough, unspecified R05.9 ; Allergy status to penicillin Z88.0 and Elevated blood-pressure reading, without diagnosis of hypertension R03.[address] [address] 08/07/2024 Susie Chapman [address] [address] 08/02/2024 Susie Chapman Assessments Encounter Date Diagnosis (ICD [...] is agreeable to ImmunoCaps. Order sent to [facility]. - Discuss SCIT in further detail next [...] Coverage End Date [employer] Medicare [address] [address] [place] [address] [id number] Ruby Sullivanyu Self - patient is the insured 4 Medical (General) History Medical History History ICD Code Anxiety disorder, unspecified F41.9
--- OUTSIDE RECORDS SUMMARY | 2025-05-08 09:26 | XMS_ITS | Patient Health Record ---
Author Organization [facility] Address [address] [address] Care Team Providers Care Heat Treating Furnace Tender Name Role Phone Alex Young Unavailable [phone] Reason For Referral No Information Plan Of Treatment No Information
--- OUTSIDE RECORDS SUMMARY | 2025-05-08 09:26 | XMS_ITS | Encounter Summary ---
Author Organization [facility] Healthcare Address [address] [place] [address] Care Team Providers Care Drum Puller Name Role Phone Araseli Tai MD Primary Care Provider Reason for Visit * Reason Onset Date Comments Test Results 04/25/2025 Lab results Encounter Details Date Type Department Care Team (Latest Contact Info) Description 04/25/2025 Results Follow-Up [facility] Medical Group Neurology [address] [place] [phone] Opal Thomson MA Protein electrophoresis with reflex, serum with interpretation, Hemoglobin A1c, Methylmalonic acid, serum, Additional followed-up results: 2 Social History Tobacco Use Types Packs/Day Years Used Date Smoking Tobacco: Never Smokeless Tobacco: Never Alcohol Use Standard Drinks/Week Comments Yes 0 (1 standard drink = 0.6 oz pur e alcohol) occasionally Comments Unknown Sex and Gender Information Value Date Recorded Sex Assigned at Not on file Legal Sex Female 12:34 AM CURRICULUM FACILITATOR Gender Identity Not on file Sexual Orientation Not on file documented as of this encounter Miscellaneous Notes * Telephone Encounter - Opal Thomson MA - 04/25/2025 10:51 AM CDT Patient was informed of her normal lab results. * Telephone Encounter - Opal Thomson MA - 04/25/2025 10:50 AM CDT ----- Message from Janak Marques MD sent at 04/25/2025 10:44 AM CDT ----- Her lab results are overall normal. ----- Message ----- From: Interface, Lab Results In Sent: 04/18/2025 12:41 PM CDT To: Janak Marques MD documented in this encounter Plan of Treatment Not on file documented as of this encounter Visit Diagnoses Not on filedocumented in this encounter Care Teams Drum Puller Relationship Specialty Start Date End Date Araseli Tai MD [address] [facility] [address] [place] [address] PCP - General 05/14/18 documented as of this encounter
--- OUTSIDE RECORDS SUMMARY | 2025-05-08 09:26 | XMS_ITS | Clinical Summary ---
Author Organization [facility] Address [address] [place] [address] Care Team Providers Care Slope Runner Name Role Phone Araseli Tai MD Primary Care Provider Allergies Active Allergy Reactions Criticality Noted Date Comments Amoxicillin Nausea & Vomiting Low 10/27/2021 Azithromycin Nausea & Vomiting Low 10/27/2021 Clavulanic Acid Nausea & Vomiting Low 10/27/2021 Codeine Vomiting,Nausea only,Unknown Medium 2018 Propoxyphene N-Acetaminophen Nausea And Vomiting Low 12/20/2005 Sumatriptan Succinate Other (See comments) Low 01/27 Makes BERRY worst and chest tightness sumatriptan succinate Medications ondansetron ODT (ZOFRAN-ODT) 4 mg disintegrating tablet Dissolve 1 tablet for mild to moderate nausea or vomiting or 2 tablets for severe nausea or vomiting oral twice a day as needed. 15 tablet 05/14/20 18 Active famotidine (PEPCID) 40 mg tablet Take 1 tablet (40 mg total) by mouth nightly as needed for heartburn. 20 tablet 05/14/20 18 Active Additional Information Patient not taking.Reported on 04/18/2025 ALPRAZolam (XANAX) 1 mg tablet Take 2 tablets (2 mg total) by mouth daily 01/26/20 23 Active eszopiclone (LUNESTA) 3 mg tablet Take 1 tablet (3 mg total) by mouth nightly 02/02/20 23 Active aspirin 81 mg enteric coated tablet Take 1 tablet (81 mg total) by mouth daily Active albuterol HFA (PROVENTIL HFA,VENTOLIN HFA,PROAIR HFA) 90 mcg/actuation inhaler INHALE 2 PUFFS BY MOUTH EVERY 8 HOURS NEEDED Active buPROPion XL (WELLBUTRIN XL) 150 mg 24 hr tablet Take 1 tablet (150 mg total) by mouth daily Active clotrimazole-betam ethasone (LOTRISONE) cream APPLY EXTERNALLY TO AFFECTED AREAS TWICE DAILY FOR 7 DAYS Active escitalopram (LEXAPRO) 20 mg tablet Take 1 tablet (20 mg total) by mouth daily Active FLUoxetine 10 mg tablet/capsule Take 1 tablet/capsule (10 mg total) by mouth daily Active omeprazole (PriLOSEC) 40 mg capsule Take 1 capsule (40 mg total) by mouth daily 11/10/19 12 Active polyethylene glycol (MIRALAX) 17 gram/dose bulk powder Take 17 g by mouth 2 (two) times a day 12/31/19 12 Active QUEtiapine XR (SEROquel XR) 150 mg 24 hr tablet Take 1 tablet (150 mg total) by mouth daily 11/01/19 12 Active rosuvastatin (CRESTOR) 10 mg tablet Take 1 tablet (10 mg total) by mouth daily 02/20/20 25 Active zolpidem CR (AMBIEN CR) 12.5 mg CR tablet Take 1 tablet (12.5 mg total) by mouth nightly as needed 11/22/19 12 Active Active Problems No known active problems Encounters Date Type Department Care Team Description 04/25/2025 Results Follow-Up [facility] Medical Group Neurology [address] [place] [address] [address] [place] [phone] Opal Thomson MA Protein electrophoresis with reflex, serum with interpretation, Hemoglobin A1c, Methylmalonic acid, serum, Additional followed-up results: 2 04/18/2025 11:10 AM CDT - 04/18/2025 11:59 PM CDT Hospital Encounter [facility] [address] [place] [address] Diagnosis unknown Discharge Disposition: Discharge to home or self care 04/18/2025 10:40 AM CDT Lab [facility] Medical Office Bldg [address] OP Lab [address] [place] [address] [address] [place] [address] Paresthesia of skin; Other abnormal glucose; Memory deficit 04/18/2025 10:00 AM CDT Office Visit [facility] Medical Group Neurology [facility] [address] [place] [phone] Janak Marques Si, MD Paresthesia of skin (Primary Dx); Memory deficit; Other abnormal glucose from Last 3 Months Surgical History Surgery Date Site/Laterality Comments CARPAL [...] on file 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 Gender Identity Not on file Sexual Orientation Not on file Obstetrics History Last Filed Vital Signs Vital Sign Reading Time Taken Comments Blood Pressure 138/70 04/18/2025 10:02 AM CDT Pulse 71 04/18/2025 10:02 AM CDT Temperature 36.4 C (97.6 F) 2018 4:15 PM CDT Respiratory Rate 14 2018 6:40 PM CDT Oxygen Saturation 100% 2018 6:40 PM CDT Inhaled Oxygen Concentration - - Weight 101.2 kg (223 lb) 04/18/2025 10:02 AM CDT Height 170.2 cm (5' 7) 04/18/2025 10:02 AM CDT Body Mass Index 34.93 04/18/2025 10:02 AM CDT Plan of Treatment Health Maintenance Due Date Last Done Comments Breast Cancer Screening-Mammogram 1957 Colon Cancer Screening-Colonoscopy 1957 Depression Screening 1957 Fall Risk Assessment 1957 Hepatitis C Screening 1957 Osteoporosis Screening-Bone Density Scan 1957 DTaP/Tdap/Td Vaccine (1 - Tdap) 1968 Hepatitis B Screening 1975 Pneumococcal vaccine 65+ (1 of 1 - PCV) 2007 Zoster Vaccine (1 of 2) 2007 Well Visit 65+ 2022 Covid-19 Vaccine ( season) 04/29/202512/2021, 08/12/2021 Influenza Vaccine (#1) 2025 3, 06/10/2010, 06/07/2009 Procedures Procedure Name Priority Date/Time Associated Diagnosis Comments NEURO MR OUTSIDE CONSULT Routine 04/18/2025 11:10 AM CDT Diagnosis unknown THYROID FUNCTION CASCADE Routine 04/18/2025 10:46 AM CDT Paresthesia of skin Memory deficit VITAMIN B12 Routine 04/18/2025 10:46 AM CDT Paresthesia of skin Memory deficit METHYLMALONIC ACID, SERUM Routine 04/18/2025 10:46 AM CDT Paresthesia of skin HEMOGLOBIN A1C Routine 04/18/2025 10:46 AM CDT Paresthesia of skin Other abnormal glucose PROTEIN ELECTROPHORESIS, WITH REFLEX, SERUM Routine 04/18/2025 10:46 AM CDT Paresthesia of skin from Last 3 Months Results * Neuro MR Outside Consult (04/18/2025 11:10 AM CDT) Anatomical Region Laterality Modality N/A Magnetic Resonan ce 04/18/2025 11:4 1 AM CDT Impressions 04/18/2025 11:41 AM CDT FINDINGS AND IMPRESSION: Given the provided history, consider repeat of study with MR brain Volumetric protocol with contrast. No unenhanced MR evidence of acute intracranial process. Interval parenchymal volume loss since 2006. Please refer to outside report for incidental findings. The findings, conclusions and recommendations within this report do not replace the initial findings, conclusions and recommendations made at the facility where the study was performed based upon the imaging and clinical condition at that time. Comparison with the prior report and clinical history is necessary. The provided images may or may not represent the [employer] source data set and thus may contain changes that may lower the accuracy of this second-opinion interpretation. Electronically signed by: Viki Altamirano M.D. Narrative 04/18/2025 11:41 AM CDT EXAMINATION: RADIOLOGY CONSULTATION ON OUTSIDE IMAGING STUDY STUDY INITIALLY PERFORMED: 04/01/2025 at [facility]. TYPE OF STUDY: Multiple MR images of the brain without intravenous contrast are provided at the time of this interpretation. CONTRAST ROUTE: No contrast was administered. The protocol was not adequate to address the clinical question due to technique and lack of intravenous contrast. The outside final report was not available at the time of this second opinion interpretation. TYPE OF CONSULTATION: Consult on outside imaging study with images submitted through Outside Image Sharing Service DATE OF CONSULTATION: 04/18/2025 11:38 AM HISTORY: 69 year old woman with history of HLD, anxiety/depression, insomnia and JOSSUE presents with vibration feeling, paresthesia in feet, imbalance and memory deficit COMPARISON: MR brain dated 01/03/2007 Procedure Note Viki Bingham MD - 04/18/2025 EXAMINATION: RADIOLOGY CONSULTATION ON OUTSIDE IMAGING STUDY STUDY INITIALLY PERFORMED: 04/01/2025 at [facility]. TYPE OF STUDY: Multiple MR images of the brain without intravenous contrast are provided at the time of this interpretation. CONTRAST ROUTE: No contrast was administered. The protocol was not adequate to address the clinical question due to technique and lack of intravenous contrast. The outside final report was not available at the time of this second opinion interpretation. TYPE OF CONSULTATION: Consult on outside imaging study with images submitted through Outside Image Sharing Service DATE OF CONSULTATION: 04/18/2025 11:38 AM HISTORY: 69 year old woman with history of HLD, anxiety/depression, insomnia and JOSSUE presents with vibration feeling, paresthesia in feet, imbalance and memory deficit COMPARISON: MR brain dated 01/03/2007 IMPRESSION: FINDINGS AND IMPRESSION: Given the provided history, consider repeat of study with MR brain Volumetric protocol with contrast. No unenhanced MR evidence of acute intracranial process. Interval parenchymal volume loss since 2006. Please refer to outside report for incidental findings. The findings, conclusions and recommendations within this report do not replace the initial findings, conclusions and recommendations made at the facility where the study was performed based upon the imaging and clinical condition at that time. Comparison with the prior report and clinical history is necessary. The provided images may or may not represent the [employer] source data set and thus may contain changes that may lower the accuracy of this second-opinion interpretation. Electronically signed by: Viki Altamirano M.D. Janak Marques MD IMG MRI PROCEDURES Final Result * Thyroid Function [place] (04/18/2025 10:46 AM CDT) TSH 1.99 0.30 - 4.20 mcIUnit/mL Blood 04/18/2025 10:4 6 AM CDT 04/18/2025 12:06 PM CDT Janak Marques MD LAB BLOOD ORDERABLES Final Resul t Performing Organization Address [facility] de Phone Number [address] [place] [address] * Methylmalonic acid, serum (04/18/2025 10:46 AM CDT) MMA 0.13 <=0.40 nmol/mL [place] Comment: ADDITIONAL INFORMATION This test was developed and its performance characteristics determined by [facility] in a manner consistent with CLIA requirements. This test has not been cleared or approved by the U.S. Food and Drug Administration. Test Performed by: [place] [address] Uat Tester: Chata Park Ph.D.; CLIA# [id number] Blood 04/18/2025 10:4 6 AM CDT 04/18/2025 12:06 PM CDT Janak Marques MD LAB BLOOD ORDERABLES Final Resul t Performing Organization Address [facility] Co de Phone Number [address] [employer] [place], [place] [id number] [place] ref Lab * Protein electrophoresis with reflex, serum with interpretation (04/18/2025 10:46 AM CDT) Protein, sr 7.4 6.2 - 8.2 g/dL Comment:Testing performed by : [facility], [address] [place]., [address] Albumin 4.5 3.2 - 5.0 g/dL BERTHA Comment:Testing performed by : [facility], 1 [facility], [address] Alpha-1 globulin 0.4 0.2 - 0.4 g/dL BERTHA Comment:Testing performed by : [facility], 1 [facility], [address] Alpha-2 globulin 0.7 0.5 - 1.0 g/dL BERTHA Comment:Testing performed by : [facility], [address] [place] [address], [id number] Beta-1 globulin 0.4 0.3 - 0.6 g/dL BERTHA Comment:Testing performed by : [facility], 1 [facility], [address] Beta-2 globulin 0.5 0.2 - 0.6 g/dL BERTHA Comment:Testing performed by : [facility], [address] [place] [address], [address] Gamma globulin 0.9 0.5 - 1.7 g/dL BERTHA Comment:Testing performed by : [facility], [address] [place] [address], [id number] SPEP interp Please see comment BERTHA Comment: No apparent monoclonal peak Reviewed and signed by Zackery Rocha MD, PhD 04/19/2025 Testing performed by: [facility], [address] [place] [address], [id number] Blood 04/18/2025 10:4 6 AM CDT 04/18/2025 3:17 PM CDT Janak Marques MD LAB BLOOD ORDERABLES Final Resul t Performing Organization Address City/[facility] Co de Phone Number [address] [place] [address] * Hemoglobin A1c (04/18/2025 10:46 AM CDT) Pathologist [facility] Hgb A1C 5.1 4.0 - 5.6 % Estimated Average Glucose 100 mg/dL BERTHA Comment: The ADA recommends reporting an estimated Average Glucose (eAG) with all Hemoglobin A1c results using the equation derived from a study of 507 normal and diabetic adults. Minority populations were underrepresented and children were not included. (Diabetes Care 31:1358-8398, 2008). The eAG is not equivalent to a fasting glucose. Blood 04/18/2025 10:4 6 AM CDT 04/18/2025 12:06 PM CDT Janak Marques MD LAB BLOOD ORDERABLES Final Resul t Performing Organization Address [facility] Co de Phone Number [address] [place] [address] * Vitamin B12 (04/18/2025 10:46 AM CDT) [facility] Vitamin B12 535 230 - 1,250 pg/mL Blood 04/18/2025 10:4 6 AM CDT 04/18/2025 12:06 PM CDT Janak Marques MD LAB BLOOD ORDERABLES Final Resul t Performing Organization Address City/[facility] Co de Phone Number [address] [place] [address] from Last 3 Months Insurance [facility] MEDICARE [facility] Address: [address] [address] [place] [address] [facility] MEDICARE AD[facility] MEDICARE Address: [facility] [address] [place] [address] Care Teams Slope Runner Relationship Specialty Start Date End Date Araseli Tai MD [address] [facility] [address] [place] [address] PCP - General 05/14/18
--- NOTE | 2025-05-08 09:46 | ECG_ITS ---
Test Date: 2025-05-08 09:50:59 Measurements Intervals [place] Rate: 110 P: 44 CO: 130 QRS: 2 QRSD: 84 T: 41 QT: 312 QTc: 423 Interpretive Statements SINUS TACHYCARDIA LOW QRS VOLTAGE IN PRECORDIAL LEADS [QRS DEFLECTION < 1.0 mV IN CHEST LEADS] NONSPECIFIC T-WAVE FLAT ABNORMAL RHYTHM ECG No previous ECG available for comparison Electronically Signed On 05-08-2025 16:18:11 CDT by David Stearns M.D.
--- NOTE | 2025-05-08 09:54 | PC.NURSE ---
COVID/Flu/RSV sent to lab.
[2025-05-08 10:55] LABS: Influenza A QL RT-PCR Negative (Negative); Influenza B QL RT-PCR Negative (Negative); RSV RNA, RT-PCR Negative (Negative); SARS-CoV-2 RNA PCR Positive (Negative)
--- OUTSIDE RECORDS SUMMARY | 2025-05-08 12:54 | XMS_ITS | Encounter Summary ---
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
--- OUTSIDE RECORDS SUMMARY | 2025-05-08 12:54 | XMS_ITS | Clinical Summary ---
Author Organization [facility] Address [address] [place] [address] Care Team Providers Care Heliarc Welder Name Role Phone Araseli Tai MD Primary [...] Department Care Team Description 04/25/2025 Results Follow-Up [facility] Medical Group Neurology [address] [place] [address] [address] [place] [phone] Opal Thomson MA Protein electrophoresis with reflex, serum with interpretation, Hemoglobin A1c, Methylmalonic acid, serum, Additional followed-up results: 2 04/18/2025 11:10 AM CDT - 04/18/2025 11:59 PM CDT Hospital Encounter [facility]) [address] [place] [address] Diagnosis unknown Discharge Disposition: Discharge to home or self care 04/18/2025 10:40 AM CDT Lab [facility] Medical Office Bldg [address] [place] [address] [address] [place] [address] Paresthesia of skin; Other abnormal glucose; Memory deficit 04/18/2025 10:00 AM CDT Office Visit [facility] Medical Group Neurology [facility] [address] [place] [phone] Janak Marques Si, MD Paresthesia of [...] on file Legal Sex Female 12:34 AM COMMIS CHEF Gender Identity Not on file Sexual Orientation [...] images may or may not represent the [place] source data set and thus may contain changes that may lower the accuracy of this second-opinion interpretation. Electronically signed by: Viki Altamirano M.D. Narrative 04/18/2025 11:41 AM CDT EXAMINATION: RADIOLOGY CONSULTATION ON OUTSIDE IMAGING STUDY STUDY INITIALLY PERFORMED: 04/01/2025 at [facility]. TYPE OF STUDY: Multiple MR images [...] IMAGING STUDY STUDY INITIALLY PERFORMED: 04/01/2025 at [facility]. TYPE OF STUDY: Multiple MR images [...] images may or may not represent the [place] source data set and thus may contain changes that may lower the accuracy of this second-opinion interpretation. Electronically signed by: Viki Altamirano M.D. Janak Marques MD IMG MRI PROCEDURES Final Result * Thyroid Function [place] (04/18/2025 10:46 AM CDT) TSH 1.99 0.30 - 4.20 mcIUnit/mL Blood 04/18/2025 10:4 6 AM CDT 04/18/2025 12:06 PM CDT Janak Marques MD LAB BLOOD ORDERABLES Final Resul t Performing Organization Address [facility] de Phone Number [address] [place] [address] * Methylmalonic acid, serum (04/18/2025 10:46 AM CDT) MMA 0.13 <=0.40 nmol/mL [place] [facility] Comment: ADDITIONAL INFORMATION This test was developed and its performance characteristics determined by [facility] in a manner consistent with CLIA requirements. This test has not been cleared or approved by the U.S. Food and Drug Administration. Test Performed by: [place] [address] Rock Mason Apprentice: Chata Park Ph.D.; CLIA# [id number] Blood 04/18/2025 10:4 6 AM CDT 04/18/2025 12:06 PM CDT Janak Marques MD LAB BLOOD ORDERABLES Final Resul t Performing Organization Address [facility] Co de Phone Number [address] [employer] [place], [place] [id number] [place] ref Lab * Protein electrophoresis with reflex, serum with interpretation (04/18/2025 10:46 AM CDT) Protein, sr 7.4 6.2 - 8.2 g/dL Comment:Testing performed by : [facility], [address] [place]., [address] Albumin 4.5 3.2 - 5.0 g/dL BERTHA Comment:Testing performed by : [facility], 1 [facility], [address] Alpha-1 globulin 0.4 0.2 - 0.4 g/dL BERTHA Comment:Testing performed by : [facility], [address] [facility], [address] Alpha-2 globulin 0.7 0.5 - 1.0 g/dL BERTHA Comment:Testing performed by : [facility], [address] [place] [address], [address] Beta-1 globulin 0.4 0.3 - 0.6 g/dL BERTHA Comment:Testing performed by : [facility], [address] [facility], [address] Beta-2 globulin 0.5 0.2 - 0.6 g/dL BERTHA Comment:Testing performed by : [facility], [address] [place] [address], [address] Gamma globulin 0.9 0.5 - 1.7 g/dL BERTHA Comment:Testing performed by : [facility], [address] [place] [address], [id number] SPEP interp Please see comment BERTHA Comment: No apparent monoclonal peak Reviewed and signed by Zackery Rocha MD, PhD 04/19/2025 Testing performed by: [facility], [address] [place] [address], [id number] Blood 04/18/2025 10:4 6 AM CDT 04/18/2025 3:17 PM CDT Janak Marques MD LAB BLOOD ORDERABLES Final Resul t Performing Organization Address City/[facility] Co de Phone Number [address] [place] [address] * Hemoglobin A1c (04/18/2025 10:46 AM CDT) Pathologist [facility] Hgb A1C 5.1 4.0 - 5.6 % Estimated Average Glucose 100 mg/dL BERTHA Comment: The ADA recommends reporting an estimated Average Glucose (eAG) with all Hemoglobin A1c results using the equation derived from a study of 507 normal and diabetic adults. Minority populations were underrepresented and children were not included. (Diabetes Care 31:1320-5108, 2008). The eAG is not equivalent to a fasting glucose. Blood 04/18/2025 10:4 6 AM CDT 04/18/2025 12:06 PM CDT Janak Marques MD LAB BLOOD ORDERABLES Final Resul t Performing Organization Address [facility] Co de Phone Number [address] [place] [address] * Vitamin B12 (04/18/2025 10:46 AM CDT) [facility] Vitamin B12 535 230 - 1,250 pg/mL Blood 04/18/2025 10:4 6 AM CDT 04/18/2025 12:06 PM CDT Janak Marques MD LAB BLOOD ORDERABLES Final Resul t Performing Organization Address City/[facility] Co de Phone Number [address] [place] [address] from Last 3 Months Insurance [facility] MEDICARE ADVANTAGE [facility] MEDICARE ADVANTAGE Care Teams Heliarc Welder Relationship Specialty Start Date End Date Araseli Tai MD [address] [facility] [address] [place] [address] PCP - General 05/14/18
--- NOTE | 2025-05-08 13:00 | ED.GENADULT ---
HPI - General Adult General Chief complaint: Upper Respiratory Infection Stated complaint: COUGH/COLD S/SX Time Seen by Provider: 05/08/25 11:32 History of Present Illness HPI narrative: 69-year-old female presents to the emergency department for evaluation for cough and congestion symptoms. symptoms started few days ago. Patient does have fevers chills nonproductive cough headache myalgias. Patient denies any known sick contacts. Patient does have prior history of anxiety depression, mitral valve prolapse Related Data Home Medications ?Medication ?Instructions ?Recorded ?Confirmed ?Last Taken ?Type alprazolam 1 mg tablet (Xanax) 1 mg PO DAILY 09/04/20 09/20/24 Unknown History eszopiclone 3 mg tablet 3 mg PO ONCE 09/04/20 09/20/24 Unknown History Zyrtec 1 tablet PO DAILY PRN allergies 07/11/23 09/20/24 Unknown History ergocalciferol (vitamin D2) 1,250 1,250 mcg PO WEEKLY 07/11/23 09/20/24 Unknown History mcg (50,000 unit) capsule albuterol sulfate 90 mcg/actuation 1 inh inhalation DAILY PRN 09/20/24 09/20/24 Unknown History aerosol inhaler shortness of breath or wheezing Allergies Allergy/AdvReac Type Severity Reaction Status Date / Time azithromycin (From Zithromax Allergy Mild nausea Verified 05/08/25 09:45 Z-Justen) codeine Allergy Mild Unknown Verified 05/08/25 09:45 amoxicillin (From Augmentin) AdvReac nausea, Verified 05/08/25 09:45 headache clavulanic acid (From AdvReac nausea, Verified 05/08/25 09:45 Augmentin) headache Review of Systems Review of Systems: All systems reviewed & are unremarkable except as noted in HPI and below PMFSH Past Medical History Medical History Anxiety Breast cyst Depression Diverticulosis WALTER (generalized anxiety disorder) Insomnia MDD (major depressive disorder), recurrent episode, moderate Mitral valve prolapse Stomach ulcer Vitamin D deficiency Surgical History Surgical History History of breast biopsy History of removal of ovarian cyst Family History Family History Sibling Hypertension Family history of mental disorder Family history of arthritis Family history of heart disease in male family member before age 55 Other Diabetes mellitus Family history of cardiovascular disease Family history of kidney disease Family history of malignant neoplasm Social History Social History Social History: Smoking packs per day: 1 Smoking cigarettes per day: 20.0 Years smoked: 20 Smoking pack-years: 20.00 Smoking status: Former smoker Tobacco type: cigarettes Second hand tobacco smoke exposure: No Smoking end date: 08/29/92 Alcohol intake: never Alcohol use details: socially, 1 glass of wine a month Substance use: never Substance use type: does not use Do You Feel Safe in your Home?: Yes Lack of Transportation: No Lack of Food: Never True Current Housing: I Have Housing Concerned About Future Housing: No Difficulty Paying Gas/Electric Bills: No Difficulty Paying for Meds: No Currently Unemployed: YES Education: Decline to Answer Difficulty w/ Childcare or Family Care: No Living arrangements: alone Occupation/Education: retired Gender identity (if verbalized by the patient): Female Sexual Orientation (if Verbalized by the Patient): Straight or Heterosexual Spiritual care concerns: No Exam Narrative: APPEARANCE: ill-appearing HEAD: normocephalic, atraumatic. EYES: PERRLA/EOMI, conjunctivae clear. NOSE: Normal no drainage EARS:TMS clear with good light reflex. THROAT: Pharynx clear, no exudate. NECK: Supple. No adenopathy, no masses. RESPIRATORY: Airway patent, respirations nonlabored. Clear to auscultation bilaterally, no rales, rhonchi, wheezing. CARDIOVASCULAR: Regular rate and rhythm without murmurs rubs or gallops. ABDOMINAL: Soft, nontender, nondistended, normal bowel sounds MUSCULOSKELETAL: Moves all extremities. Strength/ROM intact, No edema, No calf tenderness. NEURO: Alert. Cranial nerves II through XII intact. grossly intact SKIN: Warm, dry. Normal Color Course Vital Signs Vital signs: Vital Signs Temperature 98 F 05/08/25 09:43 Pulse Rate 113 H 05/08/25 09:43 Respiratory Rate 16 05/08/25 09:43 Blood Pressure 152/86 H 05/08/25 09:43 Pulse Oximetry 99 05/08/25 09:43 Oxygen Delivery Room Air 05/08/25 09:43 Temperature 101.8 F H 05/08/25 13:47 Pulse Rate 106 H 05/08/25 13:47 Respiratory Rate 17 05/08/25 13:47 Blood Pressure 141/77 H 05/08/25 13:47 Pulse Oximetry 94 05/08/25 13:47 Oxygen Delivery Room Air 05/08/25 11:30 Medical Decision Making MDM Narrative Medical decision making narrative: 69-year-old female presented to the emergency department for evaluation for cough and congestion. Patient is afebrile. Patient was negative for influenza RSV was positive for COVID. Chest x-ray shows no acute cardiopulmonary abnormality. EKG showed sinus tachycardia. Patient was febrile upon arrival patient was treated with 1 g of p.o. Tylenol along with IM Toradol. Patient was updated results of her COVID and treatment for home. Patient will be discharged home with albuterol inhaler, Tessalon Perles for cough and patient was instructed to take Tylenol ibuprofen for fever control. All questions concerns were addressed. Differential Diagnosis Differential Diagnosis: COVID, RSV, influenza, pneumonia, pneumothorax Vital Signs Vital Signs: Vital Signs Temperature 98 F 05/08/25 09:43 Pulse Rate 113 H 05/08/25 09:43 Respiratory Rate 16 05/08/25 09:43 Blood Pressure 152/86 H 05/08/25 09:43 Pulse Oximetry 99 05/08/25 09:43 Oxygen Delivery Room Air 05/08/25 09:43 Temperature 101.8 F H 05/08/25 13:47 Pulse Rate 106 H 05/08/25 13:47 Respiratory Rate 17 05/08/25 13:47 Blood Pressure 141/77 H 05/08/25 13:47 Pulse Oximetry 94 05/08/25 13:47 Oxygen Delivery Room Air 05/08/25 11:30 Lab Data Lab results reviewed: Yes I reviewed the patient's lab results. Labs: Lab Results 05/08/25 Range/Units 09:48 Influenza A (RT-PCR) Negative (Negative) Influenza B (RT-PCR) Negative (Negative) RSV (RT-PCR) Negative (Negative) SARS-CoV-2 RNA (RT-PCR) Positive A (Negative) Imaging Data Radiologist's impression: Impressions Chest X-Ray 05/08/25 11:50 IMPRESSION: 1: NO ACUTE CARDIOPULMONARY DISEASE. ECG Data EKG #1: EKG Interpretation: tachycardia, sinus rhythm, no ectopy, non-specific ST changes, normal QRS, normal QT and NL axis Discharge Plan Discharge Clinical Impression: COVID, Fever Patient Disposition: Home Condition: Stable Instructions: Antibiotic Form, Viral Syndrome (ED), COVID-19 (Coronavirus Disease 2019) (ED) Additional Instructions: Tylenol and ibuprofen for pain control. Albuterol inhaler for shortness of breath. Tessalon Perles for cough. Drink plenty of fluids. Have close follow-up with your primary care physician. If you have any worsening symptoms then please call or return to the emergency department. Patient Language: Welsh Prescriptions: New benzonatate 100 mg capsule 100 mg PO TID PRN (Reason: cough) Qty: 14 0RF albuterol sulfate 90 mcg/actuation HFA aerosol inhaler 1 puff inhalation QID Qty: 6.7 0RF cefdinir 300 mg capsule 300 mg PO Q12H 7 Days Qty: 14 0RF No Action alprazolam [Xanax] 1 mg tablet 1 mg PO DAILY eszopiclone 3 mg tablet 3 mg PO ONCE Rx Instructions: lunesta fluticasone propionate [Flonase Allergy Relief] 50 mcg/actuation spray,suspension 1 - 2 spray intranasal BID Qty: 16 1RF Rx Instructions: administer into each nostril. Aim back/up/out diclofenac sodium 75 mg tablet,delayed release (DR/EC) 75 mg PO BID Qty: 60 0RF Patient Comments: pt states no longer taking tizanidine 2 mg tablet 2 mg PO TID PRN (Reason: muscle spasticity) Qty: 90 0RF Patient Comments: pt no longer taking albuterol sulfate 90 mcg/actuation HFA aerosol inhaler 1 inh INHALATION DAILY PRN (Reason: shortness of breath or wheezing) ergocalciferol (vitamin D2) 1,250 mcg (50,000 unit) capsule 1,250 mcg PO WEEKLY Patient Comments: pt no longer taking Zyrtec 1 tablet PO DAILY PRN (Reason: allergies) Follow-up/Referrals: Frank,MD Mignon [Primary Care Provider]
[2025-05-08] MEDS: ACETAMINOPHEN 500 MG TABLET 1000 MG PO (13:03)
[2025-05-08] MEDS: KETOROLAC (*BKC) 60 MG/2 ML VIAL IM (13:04)
== END 2025-05-08 13:48 | disposition home or self-care (01) ==
PROVIDERS: Emergency Provider Emergency Medicine; PCP Internal Medicine
DX: U07.1 COVID-19 (principal); R50.9 Fever, unspecified; I34.1 Nonrheumatic mitral (valve) prolapse; E55.9 Vitamin D deficiency, unspecified; F33.9 Major depressive disorder, recurrent, unspecified; F41.1 Generalized anxiety disorder; Z87.891 Personal history of nicotine dependence; R00.0 Tachycardia, unspecified
CPT/HCPCS: 71046; 87637; 93005; 96372; 99283; A9270; J1885